=== PATIENT | male | born 1985 | race Caucasian/White ===

== ENCOUNTER 2016-11-10 20:47 | Emergency (ER) | payer BC, OTHER ==
--- NOTE | 2016-11-10 21:59 | RADIOLOGY REPORT (SQ) ---
EXAM DESCRIPTION: RIBS LEFT W/PA CHEST COMPLETED DATE/TIME: 11/10/2016 9:41 pm REASON FOR STUDY: left rib pain COMPARISON: None. TECHNIQUE: Frontal view of the chest and additional views of the left ribs acquired. NUMBER OF VIEWS: Three views LIMITATIONS: None. FINDINGS: FRONTAL CXR: No pneumothorax. No pleural effusion. No atelectasis or infiltrates. RIBS: No displaced rib fractures. No lytic or blastic bony lesions. OTHER: No other significant finding. IMPRESSION: NO PNEUMOTHORAX. NO DISPLACED RIB FRACTURES. COMMENT: SITE OF TRAUMA/COMPLAINT MARKED/STAMP COMPLETED: No TECHNICAL DOCUMENTATION: JOB ID: [id number] [employer]- All Rights Reserved
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
[2016-11-10] MEDS ORDERED: HYDROMORPHONE HCL INJ/PF 2 MG/ML AMPULE IV ONE (22:17)
[2016-11-10] MEDS ORDERED: ONDANSETRON HCL INJ/PF 4 MG/2 ML SDV IV ONE (22:17)
[2016-11-11] MEDS ORDERED: HYDROMORPHONE HCL INJ/PF 2 MG/ML AMPULE IV ONE (00:26)
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
[2016-11-11 00:59] LABS: ABSOLUTE BASOPHILS # (AUTO) 0.1 10^3/uL (0.0-0.2); ABSOLUTE EOSINOPHILS # (AUTO) 0.7 10^3/uL (0.0-0.6); ABSOLUTE LYMPHOCYTES (AUTO) 3.2 10^3/uL (0.5-4.7); ABSOLUTE MONOCYTES (AUTO) 0.7 10^3/uL (0.1-1.4); ABSOLUTE NEUT (AUTO) 5.3 10^3/uL (1.7-8.2); BASOPHILS % (AUTO) 0.8 % (0-2); EOSINOPHILS % (AUTO) 7.2 % (0-6); HEMATOCRIT 43.4 % (37.9-51.0); HEMOGLOBIN 14.8 g/dL (13.5-17.0); LYMPHOCYTES % (AUTO) 32.2 % (13-45); MEAN CORPUSCULAR HEMOGLOBIN 30.7 pg (27.0-33.4); MEAN CORPUSCULAR HGB CONC 34.1 g/dL (32.0-36.0); MEAN CORPUSCULAR VOLUME 90 fl (80-97); MONOCYTES % (AUTO) 7.2 % (3-13); RED BLOOD COUNT 4.83 10^6/uL (4.35-5.55); RED CELL DISTRIBUTION WIDTH 13.9 % (11.5-14.0); SEGMENTED NEUTROPHILS % (AUTO) 52.6 % (42-78)
[2016-11-11 01:05] LABS: ALANINE AMINOTRANSFERASE 81 U/L (21-72); ALBUMIN 4.4 g/dL (3.5-5.0); ALKALINE PHOSPHATASE 89 U/L (38-126); ANION GAP 12 (5-19); ASPARTATE AMINO TRANSFERASE 66 U/L (17-59); BILIRUBIN,DIRECT 0.4 mg/dL (0.0-0.4); BILIRUBIN,TOTAL 0.5 mg/dL (0.2-1.3); BLOOD UREA NITROGEN 10 mg/dL (7-20); CALCIUM 9.2 mg/dL (8.4-10.2); CARBON DIOXIDE 27 mmol/L (22-30); CHLORIDE 106 mmol/L (98-107); CREATININE RESULT 0.75 mg/dL (0.52-1.25); GLUCOSE 94 mg/dL (75-110); LIPASE 70.5 U/L (23-300); POTASSIUM 3.8 mmol/L (3.6-5.0); SODIUM 145.3 mmol/L (137-145); TOTAL PROTEIN 7.7 g/dL (6.3-8.2)
[2016-11-11 01:18] VITALS: BP 142/93
== END 2016-11-11 01:20 | disposition home or self-care (01) ==
LOC: ER 20:47
DX: S20.212A Contusion of left front wall of thorax, initial encounter (principal); W50.0XXA Accidental hit or strike by another person, initial encounter; Y93.75 Activity, martial arts; Y92.009 Unspecified place in unspecified non-institutional (private) residence as the place of occurrence of the external cause; R07.81 Pleurodynia; Z88.6 Allergy status to analgesic agent; Z91.040 Latex allergy status; F17.200 Nicotine dependence, unspecified, uncomplicated
CPT/HCPCS: 96376; 99284; 96374; 96375; 86900; 86901; 36415; 86850; 83690; 85025; 80053; 71101; 74177; J1170 ×2; J2405

== ENCOUNTER 2016-11-14 21:10 | Emergency (ER) | payer OTHER ==
[2016-11-14 22:24] VITALS: BP 118/92
[2016-11-14] MEDS ORDERED: OXYCODONE HCL IR 5 MG TABLET PO ONE (22:33)
[2016-11-14] MEDS ORDERED: ONDANSETRON 4 MG TAB.RAPDIS PO ONE (22:33)
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
--- NOTE | 2016-11-14 23:41 | RADIOLOGY REPORT (SQ) ---
EXAM DESCRIPTION: RIBS LEFT W/PA CHEST COMPLETED DATE/TIME: 11/14/2016 11:27 pm REASON FOR STUDY: fall COMPARISON: 11/10/2016 TECHNIQUE: Frontal view of the chest and additional views of the LEFT ribs acquired. NUMBER OF VIEWS: Four view. LIMITATIONS: None. FINDINGS: FRONTAL CXR: No pneumothorax. No pleural effusion. No atelectasis or infiltrates. RIBS: No displaced rib fractures. No lytic or blastic bony lesions. OTHER: No other significant finding. IMPRESSION: NO PNEUMOTHORAX. NO EVIDENCE OF SUBACUTE OR DISPLACED RIB FRACTURES. COMMENT: SITE OF TRAUMA/COMPLAINT MARKED/STAMP COMPLETED: No TECHNICAL DOCUMENTATION: JOB ID: [id number] [employer]- All Rights Reserved
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
== END 2016-11-14 23:55 | disposition home or self-care (01) ==
LOC: ER 21:10
DX: S20.212A Contusion of left front wall of thorax, initial encounter (principal); R07.81 Pleurodynia; L03.119 Cellulitis of unspecified part of limb; W51.XXXA Accidental striking against or bumped into by another person, initial encounter
CPT/HCPCS: 99283; 71101; S0119

== ENCOUNTER 2016-11-23 22:37 | Emergency (ER) | payer OTHER | END 2016-11-23 23:15 | disposition left against medical advice (07) | LOC: ER 22:37 | DX: Z53.9 Procedure and treatment not carried out, unspecified reason (principal) ==

== ENCOUNTER 2017-01-09 17:07 | Emergency (ER) | payer OTHER ==
[2017-01-09] MEDS ORDERED: MORPHINE SULFATE 10 MG/ML INJ IM ONE (17:35)
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
[2017-01-09] MEDS ORDERED: IBUPROFEN 600 MG TABLET PO ONE (18:25)
[2017-01-09] MEDS ORDERED: LIDOCAINE 5% (700 MG) TRANSDERMAL ADH..PATCH TP ONE (18:25)
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
[2017-01-09] MEDS ORDERED: MORPHINE SULFATE IR 15 MG TABLET PO ONE (18:32)
[2017-01-09] MEDS ORDERED: FAMOTIDINE 20 MG TABLET PO ONE (18:33)
[2017-01-09 19:38] VITALS: BP 124/88
--- NOTE | 2017-01-10 12:58 | EKG REPORT ---
SEVERITY:- OTHERWISE NORMAL ECG - SINUS TACHYCARDIA : Confirmed by: Damion Briggs 10-Jan-2017 12:57:28
== END 2017-01-09 19:50 | disposition home or self-care (01) ==
LOC: ER 17:07
DX: R07.81 Pleurodynia (principal); R00.0 Tachycardia, unspecified; M54.9 Dorsalgia, unspecified; Y04.0XXA Assault by unarmed brawl or fight, initial encounter; F17.200 Nicotine dependence, unspecified, uncomplicated
CPT/HCPCS: 93005; 99283; 96372; 71101; 93010; J2270

== ENCOUNTER 2017-01-12 19:47 | Emergency (ER) | payer OTHER ==
--- NOTE | 2017-01-12 21:11 | RADIOLOGY REPORT (SQ) ---
EXAM DESCRIPTION: RIBS RIGHT W/PA CHEST COMPLETED DATE/TIME: 01/12/2017 9:02 pm REASON FOR STUDY: pain s/p injury Wednesday COMPARISON: None. TECHNIQUE: Frontal view of the chest and additional views of the right ribs acquired. NUMBER OF VIEWS: 3 LIMITATIONS: None. FINDINGS: FRONTAL CXR: No pneumothorax. No pleural effusion. No atelectasis or infiltrates. RIBS: No displaced rib fractures. No lytic or blastic bony lesions. OTHER: No other significant finding. IMPRESSION: NO PNEUMOTHORAX. NO DISPLACED RIB FRACTURES. COMMENT: SITE OF TRAUMA/COMPLAINT MARKED/STAMP COMPLETED: Yes TECHNICAL DOCUMENTATION: JOB ID: [id number] [email or web address]- All Rights Reserved
[2017-01-12] MEDS ORDERED: MORPHINE SULFATE IR 15 MG TABLET PO ONE (21:25)
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
[2017-01-12 21:58] VITALS: BP 131/94
== END 2017-01-12 22:00 | disposition home or self-care (01) ==
LOC: ER 19:47
DX: R07.81 Pleurodynia (principal); Z91.040 Latex allergy status; Z88.6 Allergy status to analgesic agent
CPT/HCPCS: 99283

== ENCOUNTER 2017-01-17 22:31 | Emergency (ER) | payer OTHER ==
--- NOTE | 2017-01-17 23:01 | RADIOLOGY REPORT (SQ) ---
EXAM DESCRIPTION: CHEST PA/LAT COMPLETED DATE/TIME: 01/17/2017 10:53 pm REASON FOR STUDY: RIP PAIN COMPARISON: 2015. NUMBER OF VIEWS: Two view. TECHNIQUE: Frontal and lateral radiographic views of the chest acquired. LIMITATIONS: None. FINDINGS: LUNGS AND PLEURA: Low lung volumes. No opacities, masses or pneumothorax. No pleural eff usion. MEDIASTINUM AND HILAR STRUCTURES: No masses. No contour abnormalities. HEART AND VASCULAR STRUCTURES: Heart normal in size and contour. No evidence for failure. BONES: No acute findings. HARDWARE: None in the chest. OTHER: No other significant finding. IMPRESSION: LOW LUNG VOLUMES. NO SIGNIFICANT RADIOGRAPHIC FINDING IN THE CHEST. TECHNICAL DOCUMENTATION: JOB ID: [id number] [email or web address]- All Rights Reserved
[2017-01-17 23:57] LABS: ABSOLUTE BASOPHILS # (AUTO) 0.1 10^3/uL (0.0-0.2); ABSOLUTE EOSINOPHILS # (AUTO) 0.4 10^3/uL (0.0-0.6); ABSOLUTE NEUT (AUTO) 8.2 10^3/uL (1.7-8.2); BASOPHILS % (AUTO) 1.1 % (0-2); HEMATOCRIT 43.2 % (37.9-51.0); HEMOGLOBIN 15.1 g/dL (13.5-17.0); HGB HCT DIFFERENCE 2.1; LYMPHOCYTES % (AUTO) 23.8 % (13-45); MEAN CORPUSCULAR HEMOGLOBIN 30.4 pg (27.0-33.4); MEAN CORPUSCULAR HGB CONC 34.8 g/dL (32.0-36.0); MEAN CORPUSCULAR VOLUME 87 fl (80-97); MONOCYTES % (AUTO) 8.1 % (3-13); RED BLOOD COUNT 4.95 10^6/uL (4.35-5.55); RED CELL DISTRIBUTION WIDTH 13.4 % (11.5-14.0); WHITE BLOOD COUNT 12.8 10^3/uL (4.0-10.5)
[2017-01-18 00:11] LABS: ALANINE AMINOTRANSFERASE 45 U/L (21-72); ALBUMIN 4.4 g/dL (3.5-5.0); ALKALINE PHOSPHATASE 84 U/L (38-126); ANION GAP 15 (5-19); ASPARTATE AMINO TRANSFERASE 28 U/L (17-59); BILIRUBIN,DIRECT 0.5 mg/dL (0.0-0.4); BILIRUBIN,TOTAL 0.8 mg/dL (0.2-1.3); BLOOD UREA NITROGEN 17 mg/dL (7-20); CALCIUM 9.8 mg/dL (8.4-10.2); CARBON DIOXIDE 23 mmol/L (22-30); CHLORIDE 104 mmol/L (98-107); CREATINE KINASE 46 U/L (55-170); GLUCOSE 94 mg/dL (75-110); POTASSIUM 4.5 mmol/L (3.6-5.0); TOTAL PROTEIN 7.9 g/dL (6.3-8.2)
[2017-01-18 00:24] LABS: CREATINE KINASE MB 0.37 ng/mL (<4.55)
[2017-01-18 00:27] LABS: TROPONIN I < 0.012 ng/mL
[2017-01-18] MEDS ORDERED: LIDOCAINE 5% (700 MG) TRANSDERMAL ADH..PATCH TP ONE (00:33)
[2017-01-18] MEDS ORDERED: KETOROLAC TROMETHAMINE INJ/PF 30 MG/1 ML SDV IV ONE (00:33)
[2017-01-18] MEDS ORDERED: MORPHINE SULFATE IR 15 MG TABLET PO ONE (00:33)
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
[2017-01-18 04:11] VITALS: BP 135/90
--- NOTE | 2017-01-18 06:22 | EKG REPORT ---
SEVERITY:- OTHERWISE NORMAL ECG - SINUS TACHYCARDIA : Confirmed by: Linda Milan MD 18-Jan-2017 06:22:04
== END 2017-01-18 01:19 | disposition home or self-care (01) ==
LOC: ER 22:31
DX: R07.81 Pleurodynia (principal); R00.0 Tachycardia, unspecified; Z91.040 Latex allergy status; Z88.6 Allergy status to analgesic agent
CPT/HCPCS: 93005; 99284; 96374; 36415; 82553; 82550; 85025; 80053; 84484; 71020; 93010; J1885

== ENCOUNTER 2018-04-20 05:25 | Emergency (ER) | payer OTHER, MEDICARE ==
[2018-04-20] MEDS ORDERED: NORMAL SALINE 1000 ML 1,000 ML IV ONE (06:03)
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
[2018-04-20] MEDS ORDERED: ONDANSETRON HCL INJ/PF 4 MG/2 ML SDV IV ONE (06:43)
[2018-04-20] MEDS ORDERED: MORPHINE SULFATE 10 MG/ML INJ IV ONE (06:43)
[2018-04-20 07:12] LABS: ABSOLUTE BASOPHILS # (AUTO) 0.1 10^3/uL (0.0-0.2); ABSOLUTE EOSINOPHILS # (AUTO) 0.2 10^3/uL (0.0-0.6); ABSOLUTE LYMPHOCYTES (AUTO) 2.3 10^3/uL (0.5-4.7); ABSOLUTE MONOCYTES (AUTO) 0.6 10^3/uL (0.1-1.4); ABSOLUTE NEUT (AUTO) 4.7 10^3/uL (1.7-8.2); BASOPHILS % (AUTO) 1.5 % (0-2); EOSINOPHILS % (AUTO) 2.3 % (0-6); HEMATOCRIT 46.3 % (37.9-51.0); HEMOGLOBIN 16.1 g/dL (13.5-17.0); LYMPHOCYTES % (AUTO) 28.8 % (13-45); MEAN CORPUSCULAR HGB CONC 34.7 g/dL (32.0-36.0); MEAN CORPUSCULAR VOLUME 89 fl (80-97); MONOCYTES % (AUTO) 7.7 % (3-13); PLATELET COUNT 313 10^3/uL (150-450); RED BLOOD COUNT 5.18 10^6/uL (4.35-5.55); RED CELL DISTRIBUTION WIDTH 13.9 % (11.5-14.0); SEGMENTED NEUTROPHILS % (AUTO) 59.7 % (42-78); TOTAL CELLS COUNTED % (AUTO) 100 %; WHITE BLOOD COUNT 7.9 10^3/uL (4.0-10.5)
[2018-04-20 07:29] LABS: ALANINE AMINOTRANSFERASE 75 U/L (21-72); ALBUMIN 4.5 g/dL (3.5-5.0); ALKALINE PHOSPHATASE 83 U/L (38-126); ANION GAP 11 (5-19); ASPARTATE AMINO TRANSFERASE 64 U/L (17-59); BILIRUBIN,DIRECT 0.3 mg/dL (0.0-0.4); BILIRUBIN,TOTAL 0.4 mg/dL (0.2-1.3); BLOOD UREA NITROGEN 14 mg/dL (7-20); CALCIUM 9.2 mg/dL (8.4-10.2); CARBON DIOXIDE 24 mmol/L (22-30); CHLORIDE 106 mmol/L (98-107); GLUCOSE 104 mg/dL (75-110); LIPASE 78.4 U/L (23-300); POTASSIUM 4.3 mmol/L (3.6-5.0); SODIUM 141.3 mmol/L (137-145); TOTAL PROTEIN 7.7 g/dL (6.3-8.2)
[2018-04-20 07:55] LABS: PROTHROMBIN TIME 12.6 SEC (11.4-15.4)
[2018-04-20 07:56] LABS: PARTIAL THROMBOPLASTIN TIME 29.9 SEC (23.5-35.8)
[2018-04-20 08:12] LABS: APPEARANCE,URINE TURBID; BILIRUBIN,URINE NEGATIVE (NEGATIVE); GLUCOSE, URINE NEGATIVE (NEGATIVE); KETONES,URINE TRACE mg/dL (NEGATIVE); LEUKOCYTE ESTERASE,URINE NEGATIVE (NEGATIVE); NITRITE,URINE NEGATIVE (NEGATIVE); PROTEIN,URINE NEGATIVE (NEGATIVE); URINE SPECIFIC GRAVITY 1.024; UROBILINOGEN,URINE NEGATIVE mg/dL (<2.0)
[2018-04-20 08:15] LABS: COLOR,URINE YELLOW
[2018-04-20] MEDS ORDERED: LIDOCAINE 2% VISCOUS SOLN 20 ML UDCUP PO ONE (08:19)
[2018-04-20] MEDS ORDERED: METOCLOPRAMIDE HCL ORAL SOLN 10 MG/10 ML UDCUP PO ONE (08:19)
[2018-04-20] MEDS ORDERED: MAG HYDROX/AL HYDROX/SIMETH SUSP 30 ML UDCUP PO ONE (08:19)
--- NOTE | 2018-04-20 08:25 | RADIOLOGY REPORT (SQ) ---
EXAM DESCRIPTION: CT ABD/PELVIS WITH IV ONLY COMPLETED DATE/TIME: 04/20/2018 8:08 am REASON FOR STUDY: ABDOMINAL PAIN, BLOOD IN STOOL COMPARISON: 11/10/2016 TECHNIQUE: CT scan of the abdomen and pelvis performed using helical scanning technique with dynamic intravenous contrast injection. No oral contrast. Images reviewed with lung, soft tissue, and bone windows. Reconstructed coronal and sagittal MPR images reviewed. Delayed images for evaluation of the urinary system also acquired. All images stored on PACS. All CT scanners at this facility use dose modulation, iterative reconstruction, and/or weight based d osing when appropriate to reduce radiation dose to as low as reasonably achievable (ALARA). [facility]: Dose Right [facility]: CareDose [facility]: Dose Right [facility]: Teradose 4D [facility]: Night Zookeeper CONTRAST TYPE AND DOSE: contrast/concentration: Isovue 350.00 mg/ml; Total Contrast Delivered: 100.0 ml; Total Saline Delivered: 70.0 ml RENAL FUNCTION: None required. The patient is less than 50 years old. RADIATION DOSE: CT Rad equipment meets quality standard of care and radiation dose reduction techniq ues were employed. CTDIvol: 19.1 - 20.6 mGy. DLP: 2366 mGy-cm.. LIMITATIONS: None. FINDINGS: LOWER CHEST: No significant findings. No nodules or infiltrates. LIVER: Normal size. No masses. No dilated ducts. SPLEEN: Normal size. No focal lesions. PANCREAS: No masses. No significant calcifications. No adjacent inflammation or peripancreatic fluid collections. Pancreatic duct not dilated. GALLBLADDER: No identified stones by CT criteria. No inflammatory changes to suggest cholecystitis. ADRENAL GLANDS: No significant masses or asymmetry. RIGHT KIDNEY AND URETER: No solid masses. No significant calcifications. No hydronephrosis or hyd roureter. LEFT KIDNEY AND URETER: No solid masses. No significant calcifications. No hydronephrosis or hydr oureter. AORTA AND VESSELS: No aneurysm. No dissection. Renal arteries, SMA, celiac without stenosis. RETROPERITONEUM: No retroperitoneal adenopathy, hemorrhage or masses. BOWEL AND PERITONEAL CAVITY: No masses or inflammatory changes. No free fluid or peritoneal masses. APPENDIX: Surgically absent. PELVIS: No mass. No free fluid. Normal bladder. ABDOMINAL WALL: No masses. No hernias. BONES: No significant or acute findings. OTHER: No other significant finding. IMPRESSION: No CT findings to explain abdominal pain or rectal bleeding. TECHNICAL DOCUMENTATION: JOB ID: [id number] Quality ID # [id number]: Final reports with documentation of one or more dose reduction techniques (e.g., Au tomated exposure control, adjustment of the mA and/or kV according to patient size, use of iterative reconstruction technique) 2010 [employer]- All Rights Reserved Reading location - IP/workstation name: [email or web address]
[2018-04-20 08:49] VITALS: BP 124/94
== END 2018-04-20 09:07 | disposition home or self-care (01) ==
LOC: ER 05:25
DX: K92.1 Melena (principal); K92.0 Hematemesis; K21.9 Gastro-esophageal reflux disease without esophagitis; R10.12 Left upper quadrant pain; F17.210 Nicotine dependence, cigarettes, uncomplicated; F12.10 Cannabis abuse, uncomplicated; Z79.899 Other long term (current) drug therapy; Z90.49 Acquired absence of other specified parts of digestive tract; Z88.6 Allergy status to analgesic agent; Z91.040 Latex allergy status
CPT/HCPCS: 99284; 96361; 96374; 96375; 36415; 83690; 85025; 85610; 85730; 80053; 81001; 74177; J3490; J2270; J2405; J7030

== ENCOUNTER 2018-05-07 13:36 | Emergency (ER) | payer OTHER, MEDICARE ==
[2018-05-07] MEDS ORDERED: OXYCODONE HCL IR 5 MG TABLET PO ONE (14:17)
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
--- NOTE | 2018-05-07 14:55 | RADIOLOGY REPORT (SQ) ---
EXAM DESCRIPTION: ANKLE RIGHT COMPLETE COMPLETED DATE/TIME: 05/07/2018 2:42 pm REASON FOR STUDY: felt pop, r ankle pain after lifting COMPARISON: None. NUMBER OF VIEWS: Three views. TECHNIQUE: AP, lateral, and oblique radiographic images acquired of the right ankle. LIMITATIONS: None. FINDINGS: MINERALIZATION: Normal. BONES: No acute fracture or dislocation. No worrisome bone lesions. JOINTS: Tibiotalar joint effusion. SOFT TISSUES: Medial and lateral soft tissue swelling. No foreign body. OTHER: No other significant finding. IMPRESSION: Ankle joint effusion with diffuse soft tissue swelling. No acute fracture or malalignme nt TECHNICAL DOCUMENTATION: JOB ID: [id number] [employer]- All Rights Reserved Reading location - IP/workstation name: [email or web address]
[2018-05-07 15:22] VITALS: BP 138/99
== END 2018-05-07 15:22 | disposition home or self-care (01) ==
LOC: ER 13:36
DX: S93.401A Sprain of unspecified ligament of right ankle, initial encounter (principal); X50.0XXA Overexertion from strenuous movement or load, initial encounter; Y93.41 Activity, dancing; F17.200 Nicotine dependence, unspecified, uncomplicated
CPT/HCPCS: 99283; 73610; L1902

== ENCOUNTER 2018-05-18 17:37 | Emergency (ER) | payer OTHER, MEDICARE ==
[2018-05-18 17:49] VITALS: BP 112/85
== END 2018-05-18 20:35 | disposition left against medical advice (07) ==
LOC: ER 17:37
DX: Z53.21 Procedure and treatment not carried out due to patient leaving prior to being seen by health care provider (principal); R42 Dizziness and giddiness

== ENCOUNTER 2018-06-21 16:51 | Emergency (ER) | payer OTHER, MEDICARE ==
[2018-06-21 16:55] VITALS: BP 134/94
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
[2018-06-21] MEDS ORDERED: KETOROLAC TROMETHAMINE 60 MG/2 ML SDV IM ONE (17:31)
== END 2018-06-21 18:27 | disposition home or self-care (01) ==
LOC: ER 16:51
DX: S60.221A Contusion of right hand, initial encounter (principal); W22.09XA Striking against other stationary object, initial encounter; F17.200 Nicotine dependence, unspecified, uncomplicated
CPT/HCPCS: 29125; 99283; 96372; 73130; J1885

== ENCOUNTER 2019-07-08 23:20 | Emergency (ER) | payer OTHER, MEDICARE ==
[2019-07-08 23:28] VITALS: BP 146/101
[2019-07-08] MEDS ORDERED: LIDOCAINE 1% INJ-PF (10 MG/ML) 30 ML SDV INJ ONE (23:50)
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
== END 2019-07-09 00:50 | disposition home or self-care (01) ==
LOC: ER 23:20
DX: S61.210A Laceration without foreign body of right index finger without damage to nail, initial encounter (principal); W45.8XXA Other foreign body or object entering through skin, initial encounter; Y93.89 Activity, other specified; Y92.009 Unspecified place in unspecified non-institutional (private) residence as the place of occurrence of the external cause; F17.200 Nicotine dependence, unspecified, uncomplicated
CPT/HCPCS: 99282

== ENCOUNTER 2020-01-03 16:03 | Inpatient (IN) | payer OTHER, MEDICARE ==
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
[2020-01-03] MEDS ORDERED: ONDANSETRON 4 MG TAB.RAPDIS PO ONE (17:24)
[2020-01-03] MEDS ORDERED: KETOROLAC TROMETHAMINE INJ/PF 30 MG/1 ML SDV IM ONE (17:25)
[2020-01-03 18:05] LABS: APPEARANCE,URINE SLIGHTLY-CLOUDY; BILIRUBIN,URINE NEGATIVE (NEGATIVE); COLOR,URINE AMBER; GLUCOSE, URINE NEGATIVE (NEGATIVE); KETONES,URINE TRACE mg/dL (NEGATIVE); LEUKOCYTE ESTERASE,URINE NEGATIVE (NEGATIVE); NITRITE,URINE NEGATIVE (NEGATIVE); PROTEIN,URINE 100 mg/dL (NEGATIVE)
--- NOTE | 2020-01-03 18:39 | RADIOLOGY REPORT (SQ) ---
EXAM DESCRIPTION: U/S SCROTUM W/DOPPLER IMAGES COMPLETED DATE/TIME: 01/03/2020 6:30 pm REASON FOR STUDY: testicular pain, bilateral COMPARISON: 2012 TECHNIQUE: Static and realtime webber scale imaging of the scrotum and testes. Selected color Doppler and spectral images recorded to document blood flow. LIMITATIONS: None. FINDINGS: RIGHT: TESTICLE: Normal size, 4.3 cm. Normal echotexture. Normal blood flow. No mass. EPIDIDYMIS: Normal. HYDROCELE OR VARICOCELE: No. HERNIA OR EXTRA-TESTICULAR MASS: No. OTHER: No other significant finding. LEFT: TESTICLE: Normal size, 4.1 cm. Normal echotexture. Normal blood flow. No mass. EPIDIDYMIS: Normal except for the presence of a 10 mm epididymal cyst. HYDROCELE OR VARICOCELE: No. HERNIA OR EXTRA-TESTICULAR MASS: No. OTHER: No other significant finding. IMPRESSION: Left epididymal cyst. The testes are normal. No acute inflammatory changes are seen. TECHNICAL DOCUMENTATION: JOB ID: [id number] 2010 [employer] All Rights Reserved Reading location - IP/workstation name: [email or web address]
[2020-01-03] MEDS ORDERED: NORMAL SALINE 1000 ML 1,000 ML IV ONE ×2 (18:58→20:32)
[2020-01-03 19:19] LABS: ABSOLUTE BASOPHILS # (AUTO) 0.1 10^3/uL (0.0-0.2); ABSOLUTE EOSINOPHILS # (AUTO) 0.2 10^3/uL (0.0-0.6); ABSOLUTE LYMPHOCYTES (AUTO) 1.6 10^3/uL (0.5-4.7); ABSOLUTE NEUT (AUTO) 10.5 10^3/uL (1.7-8.2); BASOPHILS % (AUTO) 0.5 % (0-2); EOSINOPHILS % (AUTO) 1.2 % (0-6); HEMATOCRIT 41.5 % (37.9-51.0); HEMOGLOBIN 14.3 g/dL (13.5-17.0); LYMPHOCYTES % (AUTO) 12.2 % (13-45); MEAN CORPUSCULAR HEMOGLOBIN 32.8 pg (27.0-33.4); MEAN CORPUSCULAR HGB CONC 34.4 g/dL (32.0-36.0); MEAN CORPUSCULAR VOLUME 96 fl (80-97); MONOCYTES % (AUTO) 7.6 % (3-13); RED BLOOD COUNT 4.34 10^6/uL (4.35-5.55); RED CELL DISTRIBUTION WIDTH 16.6 % (11.5-14.0); SEGMENTED NEUTROPHILS % (AUTO) 78.5 % (42-78); TOTAL CELLS COUNTED % (AUTO) 100 %; WHITE BLOOD COUNT 13.4 10^3/uL (4.0-10.5)
[2020-01-03] MEDS ORDERED: MORPHINE SULFATE 10 MG/ML INJ IV ONE ×2 (19:21→23:12)
[2020-01-03] MEDS ORDERED: ONDANSETRON HCL INJ/PF 4 MG/2 ML SDV IV ONE (19:21)
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
[2020-01-03 19:30] LABS: ALBUMIN 4.6 g/dL (3.5-5.0); ALKALINE PHOSPHATASE 106 U/L (38-126); ANION GAP 16 (5-19); ASPARTATE AMINO TRANSFERASE 72 U/L (17-59); BILIRUBIN,DIRECT 0.5 mg/dL (0.0-0.4); BILIRUBIN,TOTAL 1.5 mg/dL (0.2-1.3); BLOOD UREA NITROGEN 8 mg/dL (7-20); CALCIUM 8.3 mg/dL (8.4-10.2); CARBON DIOXIDE 22 mmol/L (22-30); CHLORIDE 99 mmol/L (98-107); GLUCOSE 114 mg/dL (75-110); POTASSIUM 3.3 mmol/L (3.6-5.0); TOTAL PROTEIN 7.9 g/dL (6.3-8.2)
[2020-01-03 19:37] LABS: PLATELET COUNT 155 10^3/uL (150-450)
--- NOTE | 2020-01-03 21:48 | RADIOLOGY REPORT (SQ) ---
CT ABDOMEN PELVIS WITH IV CONTRAST HISTORY: Abdominal pain. Pancreatitis. COMPARISON: 11/12/2019 TECHNIQUE: CT scan of the abdomen and pelvis was performed with IV contrast. This exam was performed according to our departmental dose-optimization program, which includes automated exposure control, adjustment of the mA and/or kV according to patient size and/or use of iterative reconstruction technique. FINDINGS: The lung bases are clear. No pleural or pericardial effusions. There is no hiatal hernia. There is diffuse hepatic steatosis. The spleen, gallbladder, adrenal glands, kidneys, and pelvic organs are unremarkable. No obstructing urinary stones are seen. There has been interval decrease in the inflammatory stranding surrounding the pancreas. No evidence of pancreatic necrosis or pseudocyst. There has been a prior appendectomy. The remainder of the small and large bowel, including the stomach are normal without evidence of obstruction or inflammation. No free fluid or free air is seen in the peritoneal cavity. The aorta is normal in caliber. No acute bony findings are seen. No abnormal body wall hernia. IMPRESSION: 1. Interval decrease in peripancreatic inflammatory stranding. 2. No pancreatic pseudocyst or necrosis.
[2020-01-04] MEDS ORDERED: HYDRALAZINE HCL INJ/PF 20 MG/1 ML SDV IV ONE (01:10)
[2020-01-04] MEDS ORDERED: ONDANSETRON HCL INJ/PF 4 MG/2 ML SDV IV PRN ×2 (02:14→07:30)
[2020-01-04] MEDS ORDERED: NORMAL SALINE 1000 ML 1,000 ML IV PRN (02:14)
[2020-01-04] MEDS ORDERED: PROMETHAZINE HCL INJ 25 MG/1 ML VIAL IV PRN ×2 (02:14→07:30)
[2020-01-04] MEDS ORDERED: TEMAZEPAM 7.5 MG CAPSULE PO PRN (02:14)
[2020-01-04] MEDS ORDERED: IPRATROPIUM/ALBUTEROL 0.5-2.5 MG/3 ML AMPUL NEB PRN (02:14)
[2020-01-04] MEDS ORDERED: NORMAL SALINE 1000 ML 1,000 ML with POTASSIUM CHLORIDE 20 MEQ, MAGNESIUM SULFATE 8 MEQ,... IV ONE ×10 (02:23→08:00)
[2020-01-04] MEDS ORDERED: METOPROLOL TARTRATE PF/INJ 5 MG/5 ML SDV IV PRN (02:57)
[2020-01-04] MEDS ORDERED: HYDRALAZINE HCL INJ/PF 20 MG/1 ML SDV IV PRN (02:57)
[2020-01-04] MEDS: MORPHINE SULFATE 10 MG/ML INJ IV PRN ×3 (03:14→15:14)
[2020-01-04] MEDS: LORAZEPAM INJ 2 MG/1 ML VIAL IV PRN ×2 (03:14→07:58)
--- NOTE | 2020-01-04 03:14 | PDOC H&P ---
History of Present Illness Admission Date/PCP: 01/03/20 23:[facility] History of Present Illness: ROBBY PATEL is a 34 year old male past medical history of depression, tobacco abuse, heavy alcohol abuse which he has been working to quit, stating that he used to drink heavily in the past but currently he is drinking about 3 beers per day and he is planning to cut it down completely, patient had pancreatitis before for which she was hospitalized at [facility] and subsequently left AMA as he was not allowed p.o. intake. Patient presented to ED complaining of bilateral testicular pain x3 days and acute abdominal pain x1 day. Patient is stating that during sexual activity with his he received bilateral testicular trauma after which was having severe bilateral testicular pain, patient did not seek any immediate medical attention before to go away. 2 days ago ago patient had 3 beers and the following morning patient started having severe left upper quadrant, stabbing, radiating to his back, abdominal pain associated with nausea and vomiting, patient did not seek any immediate medical attention hoping for his pain to go away however today he admitted to presented to ED as his pain was not improving. Patient is stating that initially after having abdominal pain he was not able to take any p.o. intake, as he was very nauseous and having severe abdominal pain, he has a started to take p.o. fluids and some food without any nausea or vomiting, and having bowel movements however her abdominal pain is not improved. In ED bilateral testicular ultrasound did not show any acute abnormalities, CT abdomen pelvis showed interval decrease in peripancreatic inflammatory str anding, no pancreatic pseudocyst or necrosis, however patient was very elevated lipase at two 2252.9 and elevated T bili. Patient denies any shortness of breath, nausea, vomiting, fever, chills, chest pain, diarrhea, constipation. Past Medical History Cardiac Medical History: Reports: Hypertension Neurological Medical History: Reports: Seizures Malignancy Medical History: Reports: Renal (Kidney) Cancer - Told by OR but never followed up Psychiatric Medical History: Reports: Attention Deficit Hyperactivity Disorder, Bipolar Disorder, Depression, Personality Disorder Hematology: Reports: Sickle Cell Disease Past Surgical History Past Surgical History: Reports: Appendectomy, Orthopedic Surgery - back x2, Tonsillectomy Social History Smoking Status: Current Every Day Smoker Electronic Cigarette use?: No Frequency of Alcohol Use: Heavy Hx Recreational Drug Use: Yes Drugs: Marijuana Hx Prescription Drug Abuse: No Family History Family History: CAD, DM, Malignancy Parental Family History Reviewed: Yes Children Family History Reviewed: Yes Sibling(s) Family History Reviewed.: Yes Medication/Allergy Home Medications: Aripiprazole [Abilify 5 mg Tablet] 10 mg PO DAILY 11/12/19 Omeprazole Magnesium [Prilosec Otc] 20 mg PO DAILY 11/12/19 Allergies/Adverse Reactions: gabapentin [Gabapentin] Allergy (Intermediate, Verified 01/03/20 16:57) latex [Latex] Allergy (Intermediate, Verified 01/03/20 16:57) Hives acetaminophen [From Tylenol] Adverse Reaction (Severe, Verified 01/03/20 16:57) Anaphylaxis tramadol HCl [From Ultram] Adverse Reaction (Intermediate, Verified 01/03/20 16:57) tremors valproic acid [Valproic Acid] Adverse Reaction (Verified 01/03/20 16:57) unknown Review of Systems Review of Systems: as per hpi Physical Exam Vital Signs: Temp Pulse Resp BP Pulse Ox 98.3 F 105 H 20 144/109 H 98 01/03/20 23:18 01/03/20 23:18 01/03/20 23:18 01/03/20 23:18 01/03/20 23:18 Intake & Output 01/02/20 01/03/20 01/04/20 06:59 06:59 06:59 Intake Total 1000 Balance 1000 Weight 100.8 kg General appearance: PRESENT: no acute distress, well-developed, well-nourished Head exam: PRESENT: atraumatic, normocephalic Neck exam: ABSENT: carotid bruit, JVD, lymphadenopathy, thyromegaly Respiratory exam: PRESENT: clear to auscultation maría elena. ABSENT: rales, rhonchi, wheezes Cardiovascular exam: PRESENT: RRR, tachycardia. ABSENT: diastolic murmur, rubs, systolic murmur GI/Abdominal exam: PRESENT: firm, guarding, normal bowel sounds, tenderness - Left upper quadrant. ABSENT: distended, mass, organolmegaly, rebound Neurological exam: PRESENT: alert, awake, oriented to person, oriented to place, oriented to time, oriented to situation, CN II-XII grossly intact. ABSENT: motor sensory deficit Results Laboratory Results: 01/03/20 18:59 01/03/20 18:59 01/03/20 01/03/20 01/03/20 17:25 17:45 17:45 WBC Cancelled RBC Cancelled Hgb Cancelled Hct Cancelled MCV Cancelled MCH Cancelled MCHC Cancelled RDW Cancelled Plt Count Cancelled Seg Neutrophils % Cancelled Sodium Cancelled Potassium Cancelled Chloride Cancelled Carbon Dioxide Cancelled Anion Gap Cancelled BUN Cancelled Creatinine Cancelled Est GFR ( Amer) Cancelled Est GFR (Non-Af Amer) Cancelled Glucose Cancelled Calcium Cancelled Total Bilirubin Cancelled AST Cancelled Alkaline Phosphatase Cancelled Total Protein Cancelled Albumin Cancelled Lipase Cancelled Urine Color JACOB Urine Appearance SLIGHTLY-CLOUDY Urine pH 5.0 Ur Specific [place] 1.030 Urine Protein 100 H Urine Glucose (UA) NEGATIVE Urine Ketones TRACE H Urine Blood NEGATIVE Urine Nitrite NEGATIVE Ur Leukocyte Esterase NEGATIVE Urine WBC (Auto) 3 Urine RBC (Auto) 3 01/03/20 01/03/20 18:59 18:59 WBC 13.4 H RBC 4.34 L Hgb 14.3 Hct 41.5 MCV 96 MCH 32.8 MCHC 34.4 RDW 16.6 H Plt Count 155 Seg Neutrophils % 78.5 H Sodium 136.6 L Potassium 3.3 L Chloride 99 Carbon Dioxide 22 Anion Gap 16 BUN 8 Creatinine 0.67 Est GFR ( Amer) > 60 Est GFR (Non-Af Amer) Glucose 114 H Calcium 8.3 L Total Bilirubin 1.5 H AST 72 H Alkaline Phosphatase 106 Total Protein 7.9 Albumin 4.6 Lipase 2252.9 H Urine Color Urine Appearance Urine pH Ur Specific [place] Urine Protein Urine Glucose (UA) Urine Ketones Urine Blood Urine Nitrite Ur Leukocyte Esterase Urine WBC (Auto) Urine RBC (Auto) Impressions: Scrotum Ultrasound 01/03/20 17:14 IMPRESSION: Left epididymal cyst. The testes are normal. No acute inflammatory changes are seen. Abdomen/Pelvis CT 01/03/20 20:03 IMPRESSION: 1. Interval decrease in peripancreatic inflammatory stranding. 2. No pancreatic pseudocyst or necrosis. Assessment and Plan - Diagnosis (1) Acute alcoholic pancreatitis Qualifiers: Acute pancreatitis complication: no infection or necrosis Qualified Code(s): K85.20 - Alcohol induced acute pancreatitis without necrosis or infection Is this a current diagnosis for this admission?: Yes Plan: History of recurrent alcohol pancreatitis. History of heavy drinking. Currently has been trying to cut it down. Drinks about [address] abdomen pelvis negative for any peripancreatic fluid collection or necrosis. Denies any fever no leukocytosis, no sign of infection. Admit to floor, aggressive volume decision global status, monitor electrolytes and replace as needed, advance diet as tolerated. (2) Alcohol abuse Is this a current diagnosis for this admission?: Yes Plan: History of heavy alcohol abuse, denies any history of alcohol withdrawal or DT. Last alcohol intake 2 days ago, 3 beers. Denies any anxiety, auditory or visual hallucination. No sign of acute withdrawal. Admit to floor, folic acid, thiamine, multivitamins, PRN benzos, monitor vitals, DT precautions. Encouraged on abstinence. (3) Obesity (BMI 30-39.9) Is this a current diagnosis for this admission?: Yes Plan: BMI 33.8. Will obtain TSH, hemoglobin A1c and lipid panel. Diet and lifestyle modification recommended. (4) PTSD (post-traumatic stress disorder) Is this a current diagnosis for this admission?: Yes Plan: Resume home meds. Outpatient PCP and psychiatry follow-up. (5) Tobacco abuse Is this a current diagnosis for this admission?: Yes Plan: Counseled on quitting. Nicotine patch will be provided. - Time Time Spent with patient: 35 or more minutes Smoking Cessation Education: 3 to 10 minutes Medications reviewed and adjusted accordingly: Yes Anticipated Discharge Disposition: Home, Self Care Anticipated Discharge Timeframe: within 48 hours
[2020-01-04] MEDS ORDERED: HEPARIN SOD (PORCINE) 5,000 UNIT/ML 1 ML VIAL SUBCUT SCH (06:00)
[2020-01-04] MEDS ORDERED: LORAZEPAM INJ 2 MG/1 ML VIAL IV PRN (08:02)
[2020-01-04] MEDS ORDERED: RINGERS SOLUTION,LACTATED 1,000 ML IV ONE (08:04)
[2020-01-04] MEDS: MULTIVITAMIN TABLET PO SCH (09:59)
[2020-01-04] MEDS: RINGERS SOLUTION,LACTATED 1,000 ML IV PRN ×2 (09:59→15:21)
[2020-01-04] MEDS: FAMOTIDINE INJ/PF 20 MG/2 ML SDV IV SCH ×2 (09:59→23:00)
[2020-01-04 11:44] LABS: ABSOLUTE EOSINOPHILS # (AUTO) 0.2 10^3/uL (0.0-0.6); ABSOLUTE LYMPHOCYTES (AUTO) 1.8 10^3/uL (0.5-4.7); ABSOLUTE MONOCYTES (AUTO) 0.7 10^3/uL (0.1-1.4); ABSOLUTE NEUT (AUTO) 6.6 10^3/uL (1.7-8.2); BASOPHILS % (AUTO) 0.4 % (0-2); EOSINOPHILS % (AUTO) 2.1 % (0-6); HEMATOCRIT 33.5 % (37.9-51.0); LYMPHOCYTES % (AUTO) 19.3 % (13-45); MEAN CORPUSCULAR HEMOGLOBIN 32.8 pg (27.0-33.4); MEAN CORPUSCULAR HGB CONC 34.5 g/dL (32.0-36.0); MEAN CORPUSCULAR VOLUME 95 fl (80-97); MONOCYTES % (AUTO) 7.8 % (3-13); PLATELET COUNT 132 10^3/uL (150-450); RED BLOOD COUNT 3.53 10^6/uL (4.35-5.55); RED CELL DISTRIBUTION WIDTH 16.3 % (11.5-14.0); SEGMENTED NEUTROPHILS % (AUTO) 70.4 % (42-78); TOTAL CELLS COUNTED % (AUTO) 100 %; WHITE BLOOD COUNT 9.4 10^3/uL (4.0-10.5)
[2020-01-04 11:46] LABS: HEMOGLOBIN 11.6 g/dL (13.5-17.0)
[2020-01-04 12:05] LABS: ANION GAP 8 (5-19); BLOOD UREA NITROGEN 6 mg/dL (7-20); CALCIUM 7.2 mg/dL (8.4-10.2); CARBON DIOXIDE 22 mmol/L (22-30); CHLORIDE 103 mmol/L (98-107); GLUCOSE 97 mg/dL (75-110)
[2020-01-04 13:19] LABS: POTASSIUM 3.6 mmol/L (3.6-5.0)
--- NOTE | 2020-01-04 16:43 | PDOC PROGRESS REPORT ---
Subjective Progress Note for:: 01/04/20 Subjective:: Patient is resting in bed. He states that he was finally able to get comfortable enough to sleep. Continues to complain of abdominal and testicular pain. He does feel as though his abdominal pain is improving slowly. Testicular pain continues to be intermittent. He is tolerating liquids. Denies nausea, vomiting, diarrhea. Denies DT or feelings of alcohol withdraw. Further denies fever, chills, CP or SOB. Reason For Visit: ACUTE PANCREATITIS,ABDOMINAL PAIN,NAUSEA,VOMITING Physical Exam Vital Signs: Temp Pulse Resp BP Pulse Ox 98.9 F 133 H 20 128/97 H 97 01/04/20 08:33 01/04/20 08:33 01/04/20 08:33 01/04/20 08:33 01/04/20 08:33 Intake & Output 01/03/20 01/04/20 01/05/20 06:59 06:59 06:59 Intake Total 1000 1000 Balance 1000 1000 Weight 102.4 kg General appearance: PRESENT: no acute distress, cooperative, obese Head exam: PRESENT: atraumatic, normocephalic Eye exam: PRESENT: conjunctiva pink, EOMI, PERRLA. ABSENT: scleral icterus Ear exam: PRESENT: TM's normal bilaterally. ABSENT: bleeding, drainage Mouth exam: PRESENT: moist, tongue midline Neck exam: PRESENT: full ROM. ABSENT: JVD, tenderness, thyromegaly Respiratory exam: PRESENT: clear to auscultation maría elena, symmetrical, unlabored. ABSENT: chest wall tenderness, rales, retraction, stridor, tachypnea Cardiovascular exam: PRESENT: +S1, +S2, tachycardia GI/Abdominal exam: PRESENT: guarding, normal bowel sounds, tenderness - Left upper and lowe rquadrant, other - Striae. ABSENT: ascites, firm Rectal exam: PRESENT: deferred Extremities exam: ABSENT: calf tenderness, clubbing, pedal edema, tenderness Musculoskeletal exam: PRESENT: ambulatory, full ROM. ABSENT: deformity, dislocation Neurological exam: PRESENT: alert, awake, oriented to person, oriented to place, oriented to time, oriented to situation, CN II-XII grossly intact. ABSENT: motor sensory deficit Psychiatric exam: PRESENT: depressed, suicidal ideation, other - Patient becomes teary on exm when discussing stressors Skin exam: PRESENT: dry, intact, warm. ABSENT: jaundice Results Laboratory Results: 01/03/20 18:59 01/03/20 18:59 01/03/20 01/03/20 01/03/20 17:25 17:45 17:45 WBC Cancelled RBC Cancelled Hgb Cancelled Hct Cancelled MCV Cancelled MCH Cancelled MCHC Cancelled RDW Cancelled Plt Count Cancelled Seg Neutrophils % Cancelled Sodium Cancelled Potassium Cancelled Chloride Cancelled Carbon Dioxide Cancelled Anion Gap Cancelled BUN Cancelled Creatinine Cancelled Est GFR ( Amer) Cancelled Est GFR (Non-Af Amer) Cancelled Glucose Cancelled Calcium Cancelled Total Bilirubin Cancelled AST Cancelled Alkaline Phosphatase Cancelled Total Protein Cancelled Albumin Cancelled Lipase Cancelled Urine Color JACOB Urine Appearance SLIGHTLY-CLOUDY Urine pH 5.0 Ur Specific [place] 1.030 Urine Protein 100 H Urine Glucose (UA) NEGATIVE Urine Ketones TRACE H Urine Blood NEGATIVE Urine Nitrite NEGATIVE Ur Leukocyte Esterase NEGATIVE Urine WBC (Auto) 3 Urine RBC (Auto) 3 01/03/20 01/03/20 18:59 18:59 WBC 13.4 H RBC 4.34 L Hgb 14.3 Hct 41.5 MCV 96 MCH 32.8 MCHC 34.4 RDW 16.6 H Plt Count 155 Seg Neutrophils % 78.5 H Sodium 136.6 L Potassium 3.3 L Chloride 99 Carbon Dioxide 22 Anion Gap 16 BUN 8 Creatinine 0.67 Est GFR ( Amer) > 60 Est GFR (Non-Af Amer) Glucose 114 H Calcium 8.3 L Total Bilirubin 1.5 H AST 72 H Alkaline Phosphatase 106 Total Protein 7.9 Albumin 4.6 Lipase 2252.9 H Urine Color Urine Appearance Urine pH Ur Specific [place] Urine Protein Urine Glucose (UA) Urine Ketones Urine Blood Urine Nitrite Ur Leukocyte Esterase Urine WBC (Auto) Urine RBC (Auto) Impressions: Scrotum Ultrasound 01/03/20 17:14 IMPRESSION: Left epididymal cyst. The testes are normal. No acute inflammatory changes are seen. Abdomen/Pelvis CT 01/03/20 20:03 IMPRESSION: 1. Interval decrease in peripancreatic inflammatory stranding. 2. No pancreatic pseudocyst or necrosis. Assessment and Plan - Diagnosis (1) Passive suicidal ideations Is this a current diagnosis for this admission?: Yes (2) Acute alcoholic pancreatitis Qualifiers: Acute pancreatitis complication: no infection or necrosis Qualified Code(s): K85.20 - Alcohol induced acute pancreatitis without necrosis or infection Is this a current diagnosis for this admission?: Yes (3) Alcohol abuse Is this a current diagnosis for this admission?: Yes (4) Obesity (BMI 30-39.9) Is this a current diagnosis for this admission?: Yes (5) PTSD (post-traumatic stress disorder) Is this a current diagnosis for this admission?: Yes (6) Tobacco abuse Is this a current diagnosis for this admission?: Yes - Plan Summary Summary: ROBBY PATEL is a 34 year old male with past medical history of depression, tobacco abuse, heavy alcohol abuse, and pancreatitis presented to the emergency department with concerns of bilateral testicular pain (x3 days) and acute abd ominal pain (x1 day). Testicular pain originated after testicular trauma during sexual activity with his . Pain is described as an intermittent shooting pain that radiates to the abdomen. Testicular US in the ED unremarkable for acute abnormalities. Abdominal pain described as sharp shooting pain in the left upper quadrant that radiates to his back. He experienced associated nausea and vomiting. He was initially unable to tolerate PO secondary to severity of nausea and abdominal pain. He since has been able to tolerate fluids. CT abdomen, pelvis showed interbal decrease in peripancreatic inflammatory stranding, no pancreatic pseudocyst or necrosis. Lipase at time of admission 2252.9 with elevated T bili. He was subsequently admitted to the hospitalist service for further evaluation and treatment. Passive suicidal thoughts Patient became teary on exam and noted several life stresses including history of multiple tours in [place] and schooling his children at home. When asked if patient was interested in seeking psychiatric assistance he agreed. When asked if he had suicidal ideations he denied to me. Discussed case with Dr. Hernandez who saw the patient. When she asked if patient had a plan he stated that he had the "perfect plan" but states that he is not actively suicidal and adamantly denies wanting to kill himself at this time. Pt further reports previous suicide attempt of jumping in front of a car. Denies receiving or seeking treatment following. Psych has been consulted. They are agreeing to see him. Though patient denies active SI I have made nursing staff aware and they are agreeing to monitor patient closely. Acute alcoholic pancreatitis History of heavy alcohol abuse. Currently consuming 3 beers daily with last drink [address] abdomen pelvis negative for any peripancreatic fluid collection or necrosis. Denies any fever no leukocytosis, no sign of infection. Lipase 2252.9, AST:ALT ration 2:1. Continue with aggressive IVFs. Monitor electrolytes and replace as needed. Tolerating clear liquids well, advance diet as tolerated. Alcohol abuse History of heavy alcohol abuse, denies any history of alcohol withdrawal or DT. Last alcohol intake 2 days ago, 3 beers. Denies any anxiety, auditory or visual hallucination. No sign of acute withdrawal. Continue supplementing with folic acid, thiamine, multivitamins CIWA to be complete by nurse q4 hours. -Give Ativan if > 7, contact provider if >11 Obesity (BMI 30-39.9) BMI 33.8. Pending TSH, hemoglobin A1c and lipid panel. Diet and lifestyle modification recommended. PTSD (post-traumatic stress disorder) Resume home meds at this time. Psych was made aware of patient's history and will consult. Tobacco abuse Encouraged quitting. Nicotine patch will be provided. - Time Time Spent with patient: 25-34 minutes Smoking Cessation Education: 3 to 10 minutes Medications reviewed and adjusted accordingly: Yes Anticipated Discharge Disposition: Home, Self Care Anticipated Discharge Timeframe: within 24 hours
[2020-01-04] MEDS: PANTOPRAZOLE SODIUM 40 MG TABLET.DR PO SCH (17:16)
--- NOTE | 2020-01-04 17:31 | PSYCHOLOGICAL NOTE ---
Psych Note - Psych Note Date seen by psych provider: 01/04/20 Psych Note: Reason for Consult: Suicidal comments Medication recommendations per [facility]'s contracted psychiatrist are as follows: Thorazine 100mg (IV) every 6 hours Cogentin 1mg Twice daily Impression/plan: patient is recommended Full IVC. Patient discloses both suicidal and homicidal ideation. He has a history of harming himself and other with bouts of uncontrolled anger and rage. Dr. Kelly was consulted on the care and management of this patient; attending physician is in agreement with recommendations and disposition.
[2020-01-04] MEDS: BENZTROPINE MESYLATE 1 MG TABLET PO SCH (17:33)
[2020-01-04] MEDS ORDERED: NORMAL SALINE 1000 ML 1,000 ML with POTASSIUM CHLORIDE 20 MEQ, MAGNESIUM SULFATE 8 MEQ,... IV SCH ×5 (18:00)
[2020-01-04] MEDS ORDERED: CHLORPROMAZINE HCL INJ 25 MG/1 ML AMPULE IV SCH ×2 (18:00→19:00)
[2020-01-04] MEDS: CHLORPROMAZINE HCL INJ 25 MG/1 ML AMPULE IM SCH (18:18)
[2020-01-04] MEDS ORDERED: LORAZEPAM INJ 2 MG/1 ML VIAL IM ONE ×2 (18:34→18:45)
[2020-01-04] MEDS ORDERED: MAGNESIUM SULFATE 4 GM/100 ML RTUPB IV ONE (19:00)
[2020-01-04] MEDS ORDERED: CALCIUM GLUCONATE 1000 MG/10 ML INJ IV ONE (20:04)
[2020-01-04] MEDS ORDERED: CALCIUM GLUCONATE 1 GM/NS 50 ML RTU IV ONE (22:00)
[2020-01-04] MEDS ORDERED: DIAZEPAM 5 MG TABLET PO ONE (23:45)
[2020-01-05] MEDS ORDERED: OXYCODONE-ACETAMINOPHEN 5-325 MG TABLET ONE (03:56)
[2020-01-05] MEDS ORDERED: OXYCODONE HCL IR 5 MG TABLET ONE (04:07)
[2020-01-05] MEDS: OXYCODONE HCL IR 5 MG TABLET PO PRN ×2 (04:38→22:11)
[2020-01-05] MEDS: CHLORPROMAZINE HCL INJ 25 MG/1 ML AMPULE IM SCH ×3 (05:50→12:16)
[2020-01-05] MEDS: PANTOPRAZOLE SODIUM 40 MG TABLET.DR PO SCH ×2 (05:51→18:47)
[2020-01-05 08:09] LABS: ABSOLUTE EOSINOPHILS # (AUTO) 0.2 10^3/uL (0.0-0.6); ABSOLUTE LYMPHOCYTES (AUTO) 1.3 10^3/uL (0.5-4.7); ABSOLUTE MONOCYTES (AUTO) 0.5 10^3/uL (0.1-1.4); ABSOLUTE NEUT (AUTO) 5.5 10^3/uL (1.7-8.2); BASOPHILS % (AUTO) 0.5 % (0-2); EOSINOPHILS % (AUTO) 2.1 % (0-6); HEMATOCRIT 29.9 % (37.9-51.0); HEMOGLOBIN 10.6 g/dL (13.5-17.0); LYMPHOCYTES % (AUTO) 17.6 % (13-45); MEAN CORPUSCULAR HEMOGLOBIN 33.3 pg (27.0-33.4); MEAN CORPUSCULAR HGB CONC 35.4 g/dL (32.0-36.0); MEAN CORPUSCULAR VOLUME 94 fl (80-97); MONOCYTES % (AUTO) 6.6 % (3-13); PLATELET COUNT 140 10^3/uL (150-450); RED BLOOD COUNT 3.17 10^6/uL (4.35-5.55); RED CELL DISTRIBUTION WIDTH 16.2 % (11.5-14.0); SEGMENTED NEUTROPHILS % (AUTO) 73.2 % (42-78); TOTAL CELLS COUNTED % (AUTO) 100 %; WHITE BLOOD COUNT 7.5 10^3/uL (4.0-10.5)
[2020-01-05 08:14] LABS: INTERNATIONAL RATION (INR) 1.03; PROTHROMBIN TIME 13.7 SEC (11.4-15.4)
[2020-01-05 08:42] LABS: ALBUMIN 3.3 g/dL (3.5-5.0); ALKALINE PHOSPHATASE 68 U/L (38-126); ANION GAP 10 (5-19); ASPARTATE AMINO TRANSFERASE 35 U/L (17-59); BILIRUBIN,DIRECT 0.4 mg/dL (0.0-0.4); BILIRUBIN,TOTAL 0.6 mg/dL (0.2-1.3); BLOOD UREA NITROGEN 3 mg/dL (7-20); CALCIUM 7.5 mg/dL (8.4-10.2); CARBON DIOXIDE 25 mmol/L (22-30); CHLORIDE 104 mmol/L (98-107); CHOLESTEROL 158.49 mg/dL (0-200); GLUCOSE 81 mg/dL (75-110); TRIGLYCERIDES 110 mg/dL (<150)
[2020-01-05 08:48] LABS: POTASSIUM 2.8 mmol/L (3.6-5.0)
[2020-01-05 08:54] LABS: DIRECT LDL 90 mg/dL (<100)
[2020-01-05] MEDS: BENZTROPINE MESYLATE 1 MG TABLET PO SCH (09:55)
[2020-01-05] MEDS: POTASSIUM CHLORIDE 10 MEQ TABLET.ER PO SCH ×3 (09:56→14:16)
[2020-01-05] MEDS: MAGNESIUM OXIDE 400 MG TABLET PO SCH ×3 (09:56→18:47)
[2020-01-05] MEDS: MULTIVITAMIN TABLET PO SCH (09:56)
[2020-01-05] MEDS: FOLIC ACID 1 MG TABLET PO SCH (09:56)
[2020-01-05] MEDS: DIAZEPAM 5 MG TABLET PO SCH ×3 (09:57→18:46)
[2020-01-05] MEDS: FAMOTIDINE INJ/PF 20 MG/2 ML SDV IV SCH ×2 (09:58→22:02)
[2020-01-05] MEDS ORDERED: MULTIVITS (INFANT) W-IRON & FLUORIDE (0.25 MG/ML) DROPS PO SCH (10:00)
[2020-01-05] MEDS: THIAMINE HCL 100 MG TABLET PO SCH (10:02)
--- NOTE | 2020-01-05 10:22 | PDOC DISCHARGE SUMMARY ---
<EWACHRISTEN - Last Filed: 01/05/20 09:57> Impression - Admit/DC Date/PCP Admission Date/Primary Care Provider: 01/03/20 23:[facility] Discharge Date: 01/05/20 - Discharge Diagnosis (1) Depression with suicidal ideation Is this a current diagnosis for this admission?: Yes (2) Homicidal ideations Is this a current diagnosis for this admission?: Yes (3) Acute alcoholic pancreatitis Is this a current diagnosis for this admission?: Yes (4) Alcohol abuse Is this a current diagnosis for this admission?: Yes (5) Hypokalemia Is this a current diagnosis for this admission?: Yes (6) Hypomagnesemia Is this a current diagnosis for this admission?: Yes (7) Obesity (BMI 30-39.9) Is this a current diagnosis for this admission?: Yes (8) PTSD (post-traumatic stress disorder) Is this a current diagnosis for this admission?: Yes (9) Tobacco abuse Is this a current diagnosis for this admission?: Yes - Assessment Summary: Mr. ROBBY PATEL is a 34 year old [place] with past medical history of depression, tobacco abuse, heavy alcohol abuse, and alcoholic pancreatitis who presented to the emergency department with concerns of bilateral testicular pain (x3 days) and acute abdominal pain (x1 day). Testicular pain originated after testicular trauma during sexual activity with his . Pain is described as an intermittent shooting pain that radiates to the abdomen. Testicular US in the ED unremarkable for acute abnormalities. Abdominal pain described as sharp shooting pain in the left upper quadrant that radiates to his back. He experienced associated nausea and vomiting. He was initially unable to tolerate PO secondary to severity of nausea and abdominal pain. He since has been able to tolerate fluids. CT abdomen/pelvis showed interval decrease in peripancreatic inflammatory stranding, no pancreatic pseudocyst or necrosis. Lipase at time of admission 2252.9 with elevated T bili. He was subsequently admitted to the hospitalist service for further treatment of acute pancreatitis. Over the course of patient's hospitalization, he has had significant improvement in pancreatitis symptoms. He is stable, tolerating excellent oral intake and is now medically cleared for discharge to inpatient psych facility for ongoing psychiatric care. Acute alcoholic pancreatitis: History of heavy alcohol abuse, currently 5-8 shots of vodka per day. Lipase trending downward 2252 --> 910. LFTs are also normalizing and total bilirubin is now within normal limits. He is no longer have abdominal pain, nausea or vomiting and tolerating medications/food by mouth. Alcohol abuse: History of heavy alcohol abuse, denies any history of alcohol withdrawal or DT. Last alcohol intake 2 days prior to admission. So far, he has had no signs of acute withdrawal. He is receiving supplementation with folic acid, thiamine, multivitamins. Alcohol cessation counseling provided. Hypomagnesemia: Suspect this is chronic, secondary to chronic alcohol use. Supplement orally. Hypokalemia: Suspect this is chronic, secondary to chronic hypomagnesemia. Supplement orally. Depression with Suicidal Ideation: History of previous suicide attempts. History of purposefully harming himself. Psych consulted due to concern for active SI and they have recommended full IVC with disposition of patient to facility that can provide appropriate treatment. Patient is medically cleared for discharge to appropriate treatment facility and awaiting transfer. Homicidal Ideation: History of bouts of uncontrolled anger and rage. Admitted to having homicidal ideation to psych. Treatment as stated above. Obesity (BMI 30-39.9): BMI 33.8. Diet and lifestyle modification recommended. Tobacco abuse: cessation counseling and nicotine patches provided. - Additional Information Discharge Diet: As Tolerated Discharge Activity: Activity As Tolerated [facility]: [facility] - Follow up as needed History of Present Illiness History of Present Illness: ROBBY PATEL is a 34 year old male Physical Exam Vital Signs: Temp Pulse Resp BP Pulse Ox 98.2 F 116 H 16 145/90 H 97 01/05/20 07:54 01/05/20 09:05 01/05/20 09:05 01/05/20 07:54 01/05/20 09:05 Intake & Output 01/04/20 01/05/20 01/06/20 06:59 06:59 06:59 Intake Total 1000 3000 Balance 1000 3000 Weight 102.4 kg 102.1 kg Results Laboratory Results: WBC 7.5 10^3/uL (4.0-10.5) 01/05/20 06:35 RBC 3.17 10^6/uL (4.35-5.55) L 01/05/20 06:35 Hgb 10.6 g/dL (13.5-17.0) L 01/05/20 06:35 Hct 29.9 % (37.9-51.0) L 01/05/20 06:35 MCV 94 fl (80-97) 01/05/20 06:35 MCH 33.3 pg (27.0-33.4) 01/05/20 06:35 MCHC 35.4 g/dL (32.0-36.0) 01/05/20 06:35 RDW 16.2 % (11.5-14.0) H 01/05/20 06:35 Plt Count 140 10^3/uL (150-450) L 01/05/20 06:35 Lymph % (Auto) 17.6 % (13-45) 01/05/20 06:35 Brooke % (Auto) 6.6 % (3-13) 01/05/20 06:35 Eos % (Auto) 2.1 % (0-6) 01/05/20 06:35 Baso % (Auto) 0.5 % (0-2) 01/05/20 06:35 Absolute Neuts (auto) 5.5 10^3/uL (1.7-8.2) 01/05/20 06:35 Absolute Lymphs (auto) 1.3 10^3/uL (0.5-4.7) 01/05/20 06:35 Absolute Monos (auto) 0.5 10^3/uL (0.1-1.4) 01/05/20 06:35 Absolute Eos (auto) 0.2 10^3/uL (0.0-0.6) 01/05/20 06:35 Absolute Basos (auto) 0.0 10^3/uL (0.0-0.2) 01/05/20 06:35 Seg Neutrophils % 73.2 % (42-78) 01/05/20 06:35 Platelet Estimate Cancelled 01/03/20 17:45 PT 13.7 SEC (11.4-15.4) 01/05/20 06:35 INR 1.03 01/05/20 06:35 Sodium 138.9 mmol/L (137-145) 01/05/20 06:35 Potassium 2.8 mmol/L (3.6-5.0) L* 01/05/20 06:35 Chloride 104 mmol/L (98-107) 01/05/20 06:35 Carbon Dioxide 25 mmol/L (22-30) 01/05/20 06:35 Anion Gap 10 (5-19) 01/05/20 06:35 BUN 3 mg/dL (7-20) L 01/05/20 06:35 Creatinine 0.56 mg/dL (0.52-1.25) 01/05/20 06:35 Est GFR ( Amer) > 60 (>60) 01/05/20 06:35 Est GFR (Non-Af Amer) Cancelled 01/03/20 17:45 Est GFR (MDRD) Non-Af > 60 (>60) 01/05/20 06:35 Glucose 81 mg/dL (75-110) 01/05/20 06:35 Hemoglobin A1c % 4.9 % (4.7-6.0) 01/05/20 06:35 Calcium 7.5 mg/dL (8.4-10.2) L 01/05/20 06:35 Magnesium 1.4 mg/dL (1.6-2.3) L 01/05/20 06:35 Total Bilirubin 0.6 mg/dL (0.2-1.3) 01/05/20 06:35 Direct Bilirubin 0.4 mg/dL (0.0-0.4) 01/05/20 06:35 Neonat Total Bilirubin Not Reportable 01/05/20 06:35 Neonat Direct Bilirubin Not Reportable 01/05/20 06:35 Neonat Indirect Bili Not Reportable 01/05/20 06:35 AST 35 U/L (17-59) 01/05/20 06:35 ALT 15 U/L (<50) 01/05/20 06:35 Alkaline Phosphatase 68 U/L (38-126) 01/05/20 06:35 Total Protein 6.0 g/dL (6.3-8.2) L 01/05/20 06:35 Albumin 3.3 g/dL (3.5-5.0) L 01/05/20 06:35 Triglycerides 110 mg/dL (<150) 01/05/20 06:35 Cholesterol 158.49 mg/dL (0-200) 01/05/20 06:35 LDL Cholesterol Direct 90 mg/dL (<100) 01/05/20 06:35 VLDL Cholesterol 22.0 mg/dL (10-31) 01/05/20 06:35 HDL Cholesterol 58 mg/dL (>40) 01/05/20 06:35 Lipase 910.6 U/L (23-300) H 01/05/20 06:35 EGFR Cancelled 01/03/20 17:45 TSH 2.06 uIU/mL (0.47-4.68) 01/05/20 06:35 Urine Color JACOB 01/03/20 17:25 Urine Appearance SLIGHTLY-CLOUDY 01/03/20 17:25 Urine pH 5.0 (5.0-9.0) 01/03/20 17:25 Ur Specific [place] 1.030 01/03/20 17:25 Urine Protein 100 mg/dL (NEGATIVE) H 01/03/20 17:25 Urine Glucose (UA) NEGATIVE mg/dL (NEGATIVE) 01/03/20 17:25 Urine Ketones TRACE mg/dL (NEGATIVE) H 01/03/20 17:25 Urine Blood NEGATIVE (NEGATIVE) 01/03/20 17:25 Urine Nitrite NEGATIVE (NEGATIVE) 01/03/20 17:25 Urine Bilirubin NEGATIVE (NEGATIVE) 01/03/20 17:25 Urine Urobilinogen 2.0 mg/dL (<2.0) H 01/03/20 17:25 Ur Leukocyte Esterase NEGATIVE (NEGATIVE) 01/03/20 17:25 Urine WBC (Auto) 3 /HPF 01/03/20 17:25 Urine RBC (Auto) 3 /HPF 01/03/20 17:25 Squamous Epi Cells Auto <1 /HPF 01/03/20 17:25 Urine Mucus (Auto) MANY /LPF 01/03/20 17:25 Urine Ascorbic Acid NEGATIVE (NEGATIVE) 01/03/20 17:25 Serum Alcohol < 10 mg/dL (NONE DETECTED) 01/03/20 18:59 Slides for Path Review Cancelled 01/03/20 17:45 Impressions: Scrotum Ultrasound 01/03/20 17:14 IMPRESSION: Left epididymal cyst. The testes are normal. No acute inflammatory changes are seen. Abdomen/Pelvis CT 01/03/20 20:03 IMPRESSION: 1. Interval decrease in peripancreatic inflammatory stranding. 2. No pancreatic pseudocyst or necrosis. Plan Health Concerns: Risk to himself and others. Chronic pancreatitis. Plan of Treatment: Full IVC as recommended by psych. Transfer to appropriate treatment center. Continue with pancreatic supplementation. Seek treatment for chronic alcohol abuse. Goals: Appropriate pyshciatric attention and treatment. Cessation of alcohol abuse. Time Spent: Greater than 30 Minutes Stroke Is this a Stroke Patient?: No Acute Heart Failure Is this a Heart Failure Patient?: No <CASS WILKERSON - Last Filed: 01/05/20 17:26> Impression - Admit/DC Date/PCP Admission Date/Primary Care Provider: 01/03/20 23:[facility] - Additional Information Resuscitation Status: Full Code History of Present Illiness History of Present Illness: ROBBY PATEL is a 34 year old male Physical Exam Vital Signs: Temp Pulse Resp BP Pulse Ox 98.2 F 116 H 16 145/90 H 97 01/05/20 10:00 01/05/20 09:05 01/05/20 09:05 01/05/20 07:54 01/05/20 09:05 Intake & Output 01/04/20 01/05/20 01/06/20 06:59 06:59 06:59 Intake Total 1000 3000 Balance 1000 3000 Weight 102.4 kg 102.1 kg Results Laboratory Results: WBC 7.5 10^3/uL (4.0-10.5) 01/05/20 06:35 RBC 3.17 10^6/uL (4.35-5.55) L 01/05/20 06:35 Hgb 10.6 g/dL (13.5-17.0) L 01/05/20 06:35 Hct 29.9 % (37.9-51.0) L 01/05/20 06:35 MCV 94 fl (80-97) 01/05/20 06:35 MCH 33.3 pg (27.0-33.4) 01/05/20 06:35 MCHC 35.4 g/dL (32.0-36.0) 01/05/20 06:35 RDW 16.2 % (11.5-14.0) H 01/05/20 06:35 Plt Count 140 10^3/uL (150-450) L 01/05/20 06:35 Lymph % (Auto) 17.6 % (13-45) 01/05/20 06:35 Brooke % (Auto) 6.6 % (3-13) 01/05/20 06:35 Eos % (Auto) 2.1 % (0-6) 01/05/20 06:35 Baso % (Auto) 0.5 % (0-2) 01/05/20 06:35 Absolute Neuts (auto) 5.5 10^3/uL (1.7-8.2) 01/05/20 06:35 Absolute Lymphs (auto) 1.3 10^3/uL (0.5-4.7) 01/05/20 06:35 Absolute Monos (auto) 0.5 10^3/uL (0.1-1.4) 01/05/20 06:35 Absolute Eos (auto) 0.2 10^3/uL (0.0-0.6) 01/05/20 06:35 Absolute Basos (auto) 0.0 10^3/uL (0.0-0.2) 01/05/20 06:35 Seg Neutrophils % 73.2 % (42-78) 01/05/20 06:35 Platelet Estimate Cancelled 01/03/20 17:45 PT 13.7 SEC (11.4-15.4) 01/05/20 06:35 INR 1.03 01/05/20 06:35 Sodium 138.9 mmol/L (137-145) 01/05/20 06:35 Potassium 2.8 mmol/L (3.6-5.0) L* 01/05/20 06:35 Chloride 104 mmol/L (98-107) 01/05/20 06:35 Carbon Dioxide 25 mmol/L (22-30) 01/05/20 06:35 Anion Gap 10 (5-19) 01/05/20 06:35 BUN 3 mg/dL (7-20) L 01/05/20 06:35 Creatinine 0.56 mg/dL (0.52-1.25) 01/05/20 06:35 Est GFR ( Amer) > 60 (>60) 01/05/20 06:35 Est GFR (Non-Af Amer) Cancelled 01/03/20 17:45 Est GFR (MDRD) Non-Af > 60 (>60) 01/05/20 06:35 Glucose 81 mg/dL (75-110) 01/05/20 06:35 Hemoglobin A1c % 4.9 % (4.7-6.0) 01/05/20 06:35 Calcium 7.5 mg/dL (8.4-10.2) L 01/05/20 06:35 Magnesium 1.4 mg/dL (1.6-2.3) L 01/05/20 06:35 Total Bilirubin 0.6 mg/dL (0.2-1.3) 01/05/20 06:35 Direct Bilirubin 0.4 mg/dL (0.0-0.4) 01/05/20 06:35 Neonat Total Bilirubin Not Reportable 01/05/20 06:35 Neonat Direct Bilirubin Not Reportable 01/05/20 06:35 Neonat Indirect Bili Not Reportable 01/05/20 06:35 AST 35 U/L (17-59) 01/05/20 06:35 ALT 15 U/L (<50) 01/05/20 06:35 Alkaline Phosphatase 68 U/L (38-126) 01/05/20 06:35 Total Protein 6.0 g/dL (6.3-8.2) L 01/05/20 06:35 Albumin 3.3 g/dL (3.5-5.0) L 01/05/20 06:35 Triglycerides 110 mg/dL (<150) 01/05/20 06:35 Cholesterol 158.49 mg/dL (0-200) 01/05/20 06:35 LDL Cholesterol Direct 90 mg/dL (<100) 01/05/20 06:35 VLDL Cholesterol 22.0 mg/dL (10-31) 01/05/20 06:35 HDL Cholesterol 58 mg/dL (>40) 01/05/20 06:35 Lipase 910.6 U/L (23-300) H 01/05/20 06:35 EGFR Cancelled 01/03/20 17:45 TSH 2.06 uIU/mL (0.47-4.68) 01/05/20 06:35 Urine Color JACOB 01/03/20 17:25 Urine Appearance SLIGHTLY-CLOUDY 01/03/20 17:25 Urine pH 5.0 (5.0-9.0) 01/03/20 17:25 Ur Specific [place] 1.030 01/03/20 17:25 Urine Protein 100 mg/dL (NEGATIVE) H 01/03/20 17:25 Urine Glucose (UA) NEGATIVE mg/dL (NEGATIVE) 01/03/20 17:25 Urine Ketones TRACE mg/dL (NEGATIVE) H 01/03/20 17:25 Urine Blood NEGATIVE (NEGATIVE) 01/03/20 17:25 Urine Nitrite NEGATIVE (NEGATIVE) 01/03/20 17:25 Urine Bilirubin NEGATIVE (NEGATIVE) 01/03/20 17:25 Urine Urobilinogen 2.0 mg/dL (<2.0) H 01/03/20 17:25 Ur Leukocyte Esterase NEGATIVE (NEGATIVE) 01/03/20 17:25 Urine WBC (Auto) 3 /HPF 01/03/20 17:25 Urine RBC (Auto) 3 /HPF 01/03/20 17:25 Squamous Epi Cells Auto <1 /HPF 01/03/20 17:25 Urine Mucus (Auto) MANY /LPF 01/03/20 17:25 Urine Ascorbic Acid NEGATIVE (NEGATIVE) 01/03/20 17:25 Serum Alcohol < 10 mg/dL (NONE DETECTED) 01/03/20 18:59 COVID-19 Source See comment 01/05/20 14:30 Slides for Path Review Cancelled 01/03/20 17:45 Impressions: Scrotum Ultrasound 01/03/20 17:14 IMPRESSION: Left epididymal cyst. The testes are normal. No acute inflammatory changes are seen. Abdomen/Pelvis CT 01/03/20 20:03
--- NOTE | 2020-01-05 12:58 | PDOC CONSULTATION ---
Consultation-Blank Consultation: Behavioral Health Consult: FULL IVC status as of yesterday (01/04/2020), with significant history of PTSD and SA (alcohol use). At 1043 Attending Hospitalist called informing patient is medically cleared. Evaluation with patient and at bedside from [id number]. Patient reported "I was doped up 3 times and lied to." He stated he was asked over and over about suicidal ideation and current stress which is why he answered the questions. He admitted he said he has had suicidal thoughts before and commented "who hasn't." He acknowledged 3 previous suicide attempts and stated it has been 4 years since any attempts. He stated further questions were asked of him when "I was doped up and confused." He admitted he said he had the perfect plan and mentioned tying piano cord around neck with hands sticking out so people would remember. He stated "it was a joke, something I remembered reading back in the 90s." He denied current suicidal ideation. Cecy ([phone]) was present at bedside. She too was upset saying "well we are going to lose everything now, my job, our home." She asked to speak with [facility] Medical Receptionist Biller and was informed the Medical Receptionist Biller would be provided her contact information. Psycheducated both patient and on medication changes and why, IVC process and next step being placement, and plan which included referral being faxed to [facility] today. They inquired about making complaint and were informed there is a grievance process and this clinician would reach out to patient advocate (was after business hours, called [facility] asking for patient advocate, left voice mail). Also explained inpatient could be helpful in terms of cutting back on alcohol and his PTSD diagnosis. Clinical Presentation: Suicidal ideation Poor insight/judgment/impulse control as evidenced by reaction when told IVC (yelling, pulled out IV). History of PTSD and alcohol use with recent alcohol cut back Medication recommendations made by the psychiatric medication provider Dr. Froilan WILLIAMSON., includes: Change Thorazine to 100MG every 6 hours as needed Change Cogentin to 1MG to be administered with Thorazine (at least twice daily if Thorazine administered) Add Effexor 37.5MG twice a day for depression/increase energy and focus/decrease alcohol cravings Add Buspar 5MG twice a day for anxiety/calming effect/depression/sleep Add Zyprexa 2.5MG twice a day for mood stabilization/impulse control Impression/Plan: At 1043 notified patient is medically cleared. Recommendation to maintain FULL IVC and seek inpatient hospitalization based on behaviors displayed last evening (yelling, pulled out IV, called [facility] saying he was being held against his will) which demonstrated poor insight/judgment/impulse control. Also with patient cutting back on drinking alcohol and PTSD diagnosis inpatient hospitalization would be beneficial and continued support. Consulted with Dr. Kelly regarding the management and care of patient. Attending Hospitalist made aware of recommendations.
[2020-01-05] MEDS ORDERED: POTASSIUM CHLORIDE 10 MEQ TABLET.ER PO SCH (15:00)
[2020-01-05] MEDS ORDERED: CHLORPROMAZINE HCL INJ 25 MG/1 ML AMPULE IM PRN ×2 (16:32→17:12)
[2020-01-05] MEDS ORDERED: BENZTROPINE MESYLATE 1 MG TABLET PO PRN (17:12)
--- NOTE | 2020-01-05 17:28 | PDOC PROGRESS REPORT ---
Subjective Progress Note for:: 01/05/20 Subjective:: He has been tolerating excellent oral intake. Taking all medications by mouth. No nausea/vomiting. Reason For Visit: ACUTE PANCREATITIS,ABDOMINAL PAIN,NAUSEA,VOMITING Physical Exam Vital Signs: Temp Pulse Resp BP Pulse Ox 98.2 F 116 H 16 145/90 H 97 01/05/20 10:00 01/05/20 09:05 01/05/20 09:05 01/05/20 07:54 01/05/20 09:05 Intake & Output 01/04/20 01/05/20 01/06/20 06:59 06:59 06:59 Intake Total 1000 3000 Balance 1000 3000 Weight 102.4 kg 102.1 kg General appearance: PRESENT: no acute distress, cooperative Mouth exam: PRESENT: moist GI/Abdominal exam: PRESENT: normal bowel sounds, soft Extremities exam: ABSENT: pedal edema Neurological exam: PRESENT: alert, awake Psychiatric exam: PRESENT: agitated, anxious Focused psych exam: PRESENT: restlessness Skin exam: ABSENT: rash Results Laboratory Results: 01/05/20 06:35 01/05/20 06:35 01/05/20 01/05/20 01/05/20 06:35 06:35 06:35 WBC 7.5 RBC 3.17 L Hgb 10.6 L Hct 29.9 L MCV 94 MCH 33.3 MCHC 35.4 RDW 16.2 H Plt Count 140 L Seg Neutrophils % 73.2 Sodium 138.9 Potassium 2.8 L* Chloride 104 Carbon Dioxide 25 Anion Gap 10 BUN 3 L Creatinine 0.56 Est GFR ( Amer) > 60 Glucose 81 Calcium 7.5 L Magnesium 1.4 L Total Bilirubin 0.6 AST 35 Alkaline Phosphatase 68 Total Protein 6.0 L Albumin 3.3 L Triglycerides 110 Cholesterol 158.49 LDL Cholesterol Direct 90 VLDL Cholesterol 22.0 HDL Cholesterol 58 Lipase 910.6 H TSH 2.06 Impressions: Scrotum Ultrasound 01/03/20 17:14 IMPRESSION: Left epididymal cyst. The testes are normal. No acute inflammatory changes are seen. Abdomen/Pelvis CT 01/03/20 20:03 IMPRESSION: 1. Interval decrease in peripancreatic inflammatory stranding. 2. No pancreatic pseudocyst or necrosis. Assessment and Plan - Diagnosis (1) Acute alcoholic pancreatitis Qualifiers: Acute pancreatitis complication: no infection or necrosis Qualified Code( s): K85.20 - Alcohol induced acute pancreatitis without necrosis or infection Is this a current diagnosis for this admission?: Yes (2) Depression with suicidal ideation Is this a current diagnosis for this admission?: Yes (3) Homicidal ideations Is this a current diagnosis for this admission?: Yes (4) Hypokalemia Is this a current diagnosis for this admission?: Yes (5) Hypomagnesemia Is this a current diagnosis for this admission?: Yes (6) Recurrent pancreatitis Is this a current diagnosis for this admission?: Yes (7) Alcohol abuse Is this a current diagnosis for this admission?: Yes (8) Obesity (BMI 30-39.9) Is this a current diagnosis for this admission?: Yes (9) PTSD (post-traumatic stress disorder) Is this a current diagnosis for this admission?: Yes (10) Tobacco abuse Is this a current diagnosis for this admission?: Yes - Plan Summary Summary: Mr. ROBBY PATEL is a 34 year old [place] with past medical history of depression, tobacco abuse, heavy alcohol abuse, and alcoholic pancreatitis who presented to the emergency department with concerns of bilateral testicular pain (x3 days) and acute abdominal pain (x1 day). Testicular pain originated after testicular trauma during sexual activity with his . Pain is described as an intermittent shooting pain that radiates to the abdomen. Testicular US in the ED unremarkable for acute abnormalities. Abdominal pain described as sharp shooting pain in the left upper quadrant that radiates to his back. He experienced associated nausea and vomiting. He was initially unable to tolerate PO secondary to severity of nausea and abdominal pain. He since has been able to tolerate fluids. CT abdomen/pelvis showed interval decrease in peripancreatic inflammatory stranding, no pancreatic pseudocyst or necrosis. Lipase at time of admission 2252.9 with elevated T bili. He was subsequently admitted to the hospitalist service for further treatment of acute pancreatitis. Over the course of patient's hospitalization, he has had significant improvement in pancreatitis symptoms. He is stable, tolerating excellent oral intake and is now medically cleared for discharge to inpatient psych facility for ongoing psychiatric care. Acute alcoholic pancreatitis: History of heavy alcohol abuse, currently 5-8 shots of vodka per day. Lipase trending downward 2252 --> 910. LFTs are also normalizing and total bilirubin is now within normal limits. He is no longer have abdominal pain, nausea or vomiting and tolerating medications/food by mouth. Alcohol abuse: History of heavy alcohol abuse, denies any history of alcohol withdrawal or DT. Last alcohol intake 2 days prior to admission. So far, he has had no signs of acute withdrawal. He is receiving supplementation with folic acid, thiamine, multivitamins. Alcohol cessation counseling provided. Hypomagnesemia: Suspect this is chronic, secondary to chronic alcohol use. Supplement orally. Hypokalemia: Suspect this is chronic, secondary to chronic hypomagnesemia. Supplement orally. Depression with Suicidal Ideation: History of previous suicide attempts. History of purposefully harming himself. Psych consulted due to concern for active SI and they have recommended full IVC with disposition of patient to facility that can provide appropriate treatment. Patient is medically cleared for discharge to appropriate treatment facility and awaiting transfer. Homicidal Ideation: History of bouts of uncontrolled anger and rage. Admitted to having homicidal ideation to psych. Treatment as stated above. Obesity (BMI 30-39.9): BMI 33.8. Diet and lifestyle modification recommended. Tobacco abuse: cessation counseling and nicotine patches provided. - Time Time Spent with patient: 35 or more minutes Anticipated Discharge Disposition: Psych Hospital/Unit Anticipated Discharge Timeframe: within 48 hours
[2020-01-05] MEDS: OLANZAPINE 2.5 MG TABLET PO SCH (18:46)
[2020-01-05] MEDS: VENLAFAXINE HCL 37.5 MG CAP.SR.24H PO SCH (22:06)
[2020-01-05] MEDS: BUSPIRONE HCL 10 MG TABLET PO SCH (22:06)
[2020-01-06] MEDS: FAMOTIDINE INJ/PF 20 MG/2 ML SDV IV SCH (09:09)
[2020-01-06] MEDS: THIAMINE HCL 100 MG TABLET PO SCH (09:10)
[2020-01-06] MEDS: DIAZEPAM 5 MG TABLET PO SCH ×2 (09:10→14:59)
[2020-01-06] MEDS: BUSPIRONE HCL 10 MG TABLET PO SCH ×2 (09:11→21:15)
[2020-01-06] MEDS: PANTOPRAZOLE SODIUM 40 MG TABLET.DR PO SCH ×2 (09:11→17:28)
[2020-01-06] MEDS: FOLIC ACID 1 MG TABLET PO SCH (09:11)
[2020-01-06] MEDS: MULTIVITAMIN TABLET PO SCH (09:11)
[2020-01-06] MEDS: MAGNESIUM OXIDE 400 MG TABLET PO SCH ×3 (09:11→17:29)
[2020-01-06] MEDS: OLANZAPINE 2.5 MG TABLET PO SCH ×2 (09:12→17:29)
[2020-01-06] MEDS: VENLAFAXINE HCL 37.5 MG CAP.SR.24H PO SCH ×2 (09:12→21:15)
[2020-01-06 09:22] LABS: ANION GAP 9 (5-19); BLOOD UREA NITROGEN 3 mg/dL (7-20); CALCIUM 8.1 mg/dL (8.4-10.2); CARBON DIOXIDE 23 mmol/L (22-30); CHLORIDE 106 mmol/L (98-107); GLUCOSE 111 mg/dL (75-110); POTASSIUM 3.4 mmol/L (3.6-5.0)
--- NOTE | 2020-01-06 15:38 | PDOC PROGRESS REPORT ---
Subjective Progress Note for:: 01/06/20 Subjective:: He feels physically well, denies abdominal pain, nausea or vomiting. Tolerating oral intake and oral medications. Reason For Visit: ACUTE PANCREATITIS,ABDOMINAL PAIN,NAUSEA,VOMITING Physical Exam Vital Signs: Temp Pulse Resp BP Pulse Ox 97.9 F 104 H 16 121/86 H 98 01/06/20 12:09 01/06/20 12:09 01/06/20 12:09 01/06/20 08:11 01/06/20 12:09 Intake & Output 01/05/20 01/06/20 01/07/20 06:59 06:59 06:59 Intake Total 3000 120 120 Balance 3000 120 120 Weight 102.1 kg 102.1 kg General appearance: PRESENT: no acute distress, cooperative Eye exam: ABSENT: scleral icterus Mouth exam: PRESENT: moist Neck exam: ABSENT: JVD Respiratory exam: PRESENT: clear to auscultation maría elena, unlabored Cardiovascular exam: PRESENT: RRR GI/Abdominal exam: PRESENT: normal bowel sounds, soft Extremities exam: ABSENT: pedal edema Neurological exam: PRESENT: alert, awake Psychiatric exam: PRESENT: depressed Skin exam: ABSENT: rash Results Laboratory Results: 01/05/20 06:35 01/06/20 08:36 01/06/20 01/06/20 08:36 08:36 Sodium 138.2 Potassium 3.4 L Chloride 106 Carbon Dioxide 23 Anion Gap 9 BUN 3 L Creatinine 0.54 Est GFR ( Amer) > 60 Glucose 111 H Calcium 8.1 L Magnesium 1.5 L Lipase 893.3 H Impressions: Scrotum Ultrasound 01/03/20 17:14 IMPRESSION: Left epididymal cyst. The testes are normal. No acute inflammatory changes are seen. Abdomen/Pelvis CT 01/03/20 20:03 IMPRESSION: 1. Interval decrease in peripancreatic inflammatory stranding. 2. No pancreatic pseudocyst or necrosis. Assessment and Plan - Diagnosis (1) Acute alcoholic pancreatitis Qualifiers: Acute pancreatitis complication: no infection or necrosis Qualified Code(s): K85.20 - Alcohol induced acute pancreatitis without necrosis or infection Is this a current diagnosis for this admission?: Yes (2) Depression with suicidal ideation Is this a current diagnosis for this admission?: Yes (3) Homicidal ideations Is this a current diagnosis for this admission?: Yes (4) Hypokalemia Is this a current diagnosis for this admission?: Yes (5) Hypomagnesemia Is this a current diagnosis for this admission?: Yes (6) Recurrent pancreatitis Is this a current diagnosis for this admission?: Yes (7) Alcohol abuse Is this a current diagnosis for this admission?: Yes (8) Obesity (BMI 30-39.9) Is this a current diagnosis for this admission?: Yes (9) PTSD (post-traumatic stress disorder) Is this a current diagnosis for this admission?: Yes (10) Tobacco abuse Is this a current diagnosis for this admission?: Yes - Plan Summary Summary: Mr. ROBBY PATEL is a 34 year old [place] with past medical history of depression, tobacco abuse, heavy alcohol abuse, and alcoholic pancreatitis who presented to the emergency department with concerns of bilateral testicular pain (x3 days) and acute abdominal pain (x1 day). Testicular pain originated after testicular trauma during sexual activity with his . Pain is described as an intermittent shooting pain that radiates to the abdomen. Testicular US in the ED unremarkable for acute abnormalities. Abdominal pain described as sharp shooting pain in the left upper quadrant that radiates to his back. He experienced associated nausea and vomiting. He was initially unable to tolerate PO secondary to severity of nausea and abdominal pain. He since has been able to tolerate fluids. CT abdomen/pelvis showed interval decrease in peripancreatic inflammatory stranding, no pancreatic pseudocyst or necrosis. Lipase at time of admission 2252.9 with elevated T bili. He was subsequently admitted to the hospitalist service for further treatment of acute pancreatitis. Over the course of patient's hospitalization, he has had significant improvement in pancreatitis symptoms. He is stable, tolerating excellent oral intake and is now medically cleared for discharge to inpatient psych facility for ongoing psychiatric care. Acute alcoholic pancreatitis: History of heavy alcohol abuse, currently 5-8 shots of vodka per day. Lipase trending down: 2252 --> 910. LFTs are also normalizing and total bilirubin is now within normal limits. He is no longer have abdominal pain, nausea or vomiting and tolerating medications/food by mouth. Alcohol abuse: History of heavy alcohol abuse, denies any history of alcohol withdrawal or DT. Last alcohol intake 2 days prior to admission. So far, he has had no signs of acute withdrawal. He is receiving supplementation with folic acid, thiamine, multivitamins. Alcohol cessation counseling provided. Hypomagnesemia: Suspect this is chronic, secondary to chronic alcohol use. Supplement orally. Hypokalemia: Suspect this is chronic, secondary to chronic hypomagnesemia. Supplement orally. Depression with Suicidal Ideation: History of previous suicide attempts. History of purposefully harming himself. Psych consulted due to concern for active SI and they have recommended full IVC with disposition of patient to facility that can provide appropriate treatment. Patient is medically cleared for discharge to appropriate treatment facility and awaiting transfer. Homicidal Ideation: History of bouts of uncontrolled anger and rage. Admitted to having homicidal ideation to psych. Treatment as stated above. Obesity (BMI 30-39.9): BMI 33.8. Diet and lifestyle modification recommended. Tobacco abuse: cessation counseling and nicotine patches provided. - Time Time Spent with patient: 35 or more minutes Anticipated Discharge Disposition: Psych Hospital/Unit Anticipated Discharge Timeframe: within 24 hours
--- NOTE | 2020-01-06 15:46 | PDOC CONSULTATION ---
Consultation-Blank Consultation: Behavioral Health Consult: Patient status FULL Involuntary Commitment after making suicidal statements with history of PTSD and alcohol use (he reported he has been weening off). Patient lacked emotional regulation and impulse control during initial assessment of suicidal ideation. Evaluation with patient and at bedside from [id number]. Patient reported "better" when asked how he was feeling today. He stated "I am really tired" and was psychoeducated on how sometimes new medications cause that the first 5 days or so until the body adjusts. He denied any other side effects and none observed. He stated "not at all" when asked about thoughts of wanting to hurt/harm/kill self. He denied homicidal ideation. was present and noted his hands were shaky when he was pulling himself up on the bed rails. Patient stated he did not even notice. Clinical Presentation: Suicidal ideation Poor insight/judgment/impulse control as evidenced by reaction when told IVC (yelling, pulled out IV). History of PTSD and alcohol use with recent alcohol cut back Medication recommendations made by the psychiatric medication provider Dr. Froilan WILLIAMSON., includes: Discontinue Ativan 2MH IV every 2 hours as needed for CIWA as he has not demonstrated any signs or symptoms of alcohol m withdrawal Discontinue Valium 10MG three times a day Discontinue Restoril 7.5MG at night as needed for sleep Impression/Plan: Recommendation to maintain Full Involuntary Commitment. Medication adjustments took place last evening, with further recommendations today to discontinue some medications, and want to allow for longer stabilization given patient's poor emotion regulation and impulse control issues, combined with weening off alcohol and history of PTSD. Consulted with Dr. Kelly regarding the management and care of patient. Attending Hospitalist made aware of recommendations.
[2020-01-06] MEDS: POTASSIUM CHLORIDE 10 MEQ TABLET.ER PO SCH (17:29)
[2020-01-06] MEDS: OXYCODONE HCL IR 5 MG TABLET PO PRN (18:43)
[2020-01-07] MEDS: OXYCODONE HCL IR 5 MG TABLET PO PRN ×3 (03:01→17:07)
[2020-01-07] MEDS: POTASSIUM CHLORIDE 10 MEQ TABLET.ER PO SCH (10:11)
[2020-01-07] MEDS: FOLIC ACID 1 MG TABLET PO SCH (10:11)
[2020-01-07] MEDS: MAGNESIUM OXIDE 400 MG TABLET PO SCH ×2 (10:11→16:19)
[2020-01-07] MEDS: MULTIVITAMIN TABLET PO SCH (10:12)
[2020-01-07] MEDS: OLANZAPINE 2.5 MG TABLET PO SCH ×2 (10:12→17:08)
[2020-01-07] MEDS: THIAMINE HCL 100 MG TABLET PO SCH (10:12)
[2020-01-07] MEDS: BUSPIRONE HCL 10 MG TABLET PO SCH (10:12)
[2020-01-07] MEDS: VENLAFAXINE HCL 37.5 MG CAP.SR.24H PO SCH (10:12)
[2020-01-07] MEDS: PANTOPRAZOLE SODIUM 40 MG TABLET.DR PO SCH ×2 (10:13→16:19)
--- NOTE | 2020-01-07 15:07 | PDOC PROGRESS REPORT ---
Subjective Progress Note for:: 01/07/20 Subjective:: He feels well. States that the medications he is on are making him feel more calm and happy. Adamantly denies SI/HI today, stating that he was "doped on drugs" when he made those comments in the past. Several (>4) attempts made by phlebotomy today to collect labs to recheck K, Mg, but unsuccessful due to hard stick, and patient is now requesting that we stop attempting blood draws today. Reason For Visit: ACUTE PANCREATITIS,ABDOMINAL PAIN,NAUSEA,VOMITING Physical Exam Vital Signs: Temp Pulse Resp BP Pulse Ox 98.0 F 97 17 135/96 H 98 01/07/20 13:14 01/07/20 13:14 01/07/20 07:17 01/07/20 13:14 01/07/20 13:14 Intake & Output 01/06/20 01/07/20 01/08/20 06:59 06:59 06:59 Intake Total 120 1040 380 Balance 120 1040 380 Weight 102.1 kg 102 kg General appearance: PRESENT: no acute distress, cooperative, obese Eye exam: ABSENT: scleral icterus Mouth exam: PRESENT: moist Neck exam: ABSENT: JVD Respiratory exam: PRESENT: clear to auscultation maría elena Cardiovascular exam: PRESENT: RRR GI/Abdominal exam: PRESENT: normal bowel sounds, soft Extremities exam: ABSENT: pedal edema Musculoskeletal exam: PRESENT: ambulatory Neurological exam: PRESENT: alert, awake Psychiatric exam: PRESENT: appropriate affect Focused psych exam: ABSENT: restlessness Skin exam: ABSENT: rash Results Laboratory Results: 01/05/20 06:35 01/06/20 08:36 Impressions: Scrotum Ultrasound 01/03/20 17:14 IMPRESSION: Left epididymal cyst. The testes are normal. No acute in flammatory changes are seen. Abdomen/Pelvis CT 01/03/20 20:03 IMPRESSION: 1. Interval decrease in peripancreatic inflammatory stranding. 2. No pancreatic pseudocyst or necrosis. Assessment and Plan - Diagnosis (1) Acute alcoholic pancreatitis Qualifiers: Acute pancreatitis complication: no infection or necrosis Qualified Code(s): K85.20 - Alcohol induced acute pancreatitis without necrosis or infection Is this a current diagnosis for this admission?: Yes (2) Depression with suicidal ideation Is this a current diagnosis for this admission?: Yes (3) Homicidal ideations Is this a current diagnosis for this admission?: Yes (4) Hypokalemia Is this a current diagnosis for this admission?: Yes (5) Hypomagnesemia Is this a current diagnosis for this admission?: Yes (6) Recurrent pancreatitis Is this a current diagnosis for this admission?: Yes (7) Alcohol abuse Is this a current diagnosis for this admission?: Yes (8) Obesity (BMI 30-39.9) Is this a current diagnosis for this admission?: Yes (9) PTSD (post-traumatic stress disorder) Is this a current diagnosis for this admission?: Yes (10) Tobacco abuse Is this a current diagnosis for this admission?: Yes - Plan Summary Summary: Mr. ROBBY PATEL is a 34 year old [place] with past medical history of depression, tobacco abuse, heavy alcohol abuse, and alcoholic pancreatitis who presented to the emergency department with concerns of bilateral testicular pain (x3 days) and acute abdominal pain (x1 day). Testicular pain originated after testicular trauma during sexual activity with his . Pain is described as an intermittent shooting pain that radiates to the abdomen. Testicular US in the ED unremarkable for acute abnormalities. Abdominal pain described as sharp shooting pain in the left upper quadrant that radiates to his back. He experienced associated nausea and vomiting. He was initially unable to tolerate PO secondary to severity of nausea and abdominal pain. He since has been able to tolerate fluids. CT abdomen/pelvis showed interval decrease in peripancreatic inflammatory stranding, no pancreatic pseudocyst or necrosis. Lipase at time of admission 2252.9 with elevated T bili. He was subsequently admitted to the hospitalist service for further treatment of acute pancreatitis. Over the course of patient's hospitalization, he has had significant improvement in pancreatitis symptoms. He is stable, tolerating excellent oral intake and is now medically cleared for discharge, although he is now awaiting either transfer to an inpatient psych facility vs psych clearance for discharge home. Acute alcoholic pancreatitis: History of heavy alcohol abuse, currently 5-8 shots of vodka per day. Lipase trending down: 2252 --> 893. LFTs are also normalizing and total bilirubin is now within normal limits. He is no longer have abdominal pain, nausea or vomiting and tolerating medications/food by mouth. Alcohol abuse: History of heavy alcohol abuse, denies any history of alcohol withdrawal or DT. Last alcohol intake 2 days prior to admission. So far, he has had no signs of acute withdrawal. He is receiving supplementation with folic acid, thiamine, multivitamins. Alcohol cessation counseling provided. Hypomagnesemia: Suspect this is chronic, secondary to chronic alcohol use. Supplement orally. Hypokalemia: Suspect this is chronic, secondary to chronic hypomagnesemia. Supplement orally. Depression with Suicidal Ideation, Homicidal Ideation: History of previous suicide attempts. History of purposefully harming himself. Psych consulted due to concern for active SI and they have recommended full IVC with disposition of patient to facility that can provide appropriate treatment. Patient is medically cleared for discharge to appropriate treatment facility and awaiting transfer. * I will ask psych to re-evaluate patient again today as he appears much more calm, peaceful and denies SI/HI since making the medication changes recommended by psych. Obesity (BMI 30-39.9): BMI 34. Diet and lifestyle modification recommended. Tobacco abuse: cessation counseling and nicotine patches provided. - Time Time Spent with patient: 35 or more minutes Anticipated Discharge Disposition: Home, Self Care Anticipated Discharge Timeframe: within 24 hours
[2020-01-07] MEDS ORDERED: POTASSIUM CHLORIDE 10 MEQ TABLET.ER PO SCH (16:00)
[2020-01-07 17:26] VITALS: BP 136/98
--- NOTE | 2020-01-07 17:28 | PDOC DISCHARGE SUMMARY ---
Impression - Admit/DC Date/PCP Admission Date/Primary Care Provider: 01/03/20 23:[facility] Discharge Date: 01/07/20 - Discharge Diagnosis (1) Acute alcoholic pancreatitis Is this a current diagnosis for this admission?: Yes (2) Depression with suicidal ideation Is this a current diagnosis for this admission?: Yes (3) Homicidal ideations Is this a current diagnosis for this admission?: Yes (4) Hypokalemia Is this a current diagnosis for this admission?: Yes (5) Hypomagnesemia Is this a current diagnosis for this admission?: Yes (6) Recurrent pancreatitis Is this a current diagnosis for this admission?: Yes (7) Alcohol abuse Is this a current diagnosis for this admission?: Yes (8) Obesity (BMI 30-39.9) Is this a current diagnosis for this admission?: Yes (9) PTSD (post-traumatic stress disorder) Is this a current diagnosis for this admission?: Yes (10) Tobacco abuse Is this a current diagnosis for this admission?: Yes - Assessment Summary: Mr. ROBBY PATEL is a 34 year old [place] with past medical history of depression, tobacco abuse, heavy alcohol abuse, and alcoholic pancreatitis who presented to the emergency department with concerns of bilateral testicular pain (x3 days) and acute abdominal pain (x1 day). Testicular pain originated after testicular trauma during sexual activity with his . Pain is described as an intermittent shooting pain that radiates to the abdomen. Testicular US in the ED unremarkable for acute abnormalities. Abdominal pain described as sharp shooting pain in the left upper quadrant that radiates to his back. He experienced as sociated nausea and vomiting. He was initially unable to tolerate PO secondary to severity of nausea and abdominal pain. He since has been able to tolerate fluids. CT abdomen/pelvis showed interval decrease in peripancreatic inflammatory stranding, no pancreatic pseudocyst or necrosis. Lipase at time of admission 2252.9 with elevated T bili. He was subsequently admitted to the hospitalist service for further treatment of acute pancreatitis. Over the course of patient's hospitalization, he has had significant improvement in pancreatitis symptoms. He is stable, tolerating excellent oral intake and is now medically cleared for discharge, although he is now awaiting either transfer to an inpatient psych facility vs psych clearance for discharge home. Acute alcoholic pancreatitis: History of heavy alcohol abuse, currently 5-8 shots of vodka per day. Lipase trending down: 2252 --> 893. LFTs are also normalizing and total bilirubin is now within normal limits. He is no longer have abdominal pain, nausea or vomiting and tolerating medications/food by mouth. Alcohol abuse: History of heavy alcohol abuse, denies any history of alcohol wi thdrawal or DT. Last alcohol intake 2 days prior to admission. So far, he has had no signs of acute withdrawal. He is receiving supplementation with folic acid, thiamine, multivitamins. Alcohol cessation counseling provided. Hypomagnesemia: Suspect this is chronic, secondary to chronic alcohol use. Supplemented orally. Hypokalemia: Suspect this is chronic, secondary to chronic hypomagnesemia. Supplemented orally. Depression with Suicidal Ideation, Homicidal Ideation: History of previous suicide attempts. History of purposefully harming himself. Psych consulted due to concern for active SI on admission, and they initially recommended full IVC with disposition of patient to facility that can provide appropriate treatment. He was started on several new psych medications, when subsequent improvement in his mood and outlook, and he is now denying SI/HI to all providers. Patient has now been both medically and psychiatrically cleared for discharge to home and IVC has been lifted. [facility] and [facility]. Obesity (BMI 30-39.9): BMI 34. Diet and lifestyle modification recommended. Tobacco abuse: cessation counseling and nicotine patches provided. - Additional Information Resuscitation Status: Full Code Discharge Diet: Regular Discharge Activity: Activity As Tolerated Referrals: PSYCH,FACILITY [Other] Prescriptions: Buspirone HCl 1 tab PO BID #60 tab Venlafaxine HCl ER [Effexor Xr 37.5 mg Cap.sr] 37.5 mg PO Q12 #60 cap.sr.24h Olanzapine [Zyprexa 2.5 mg Tablet] 2.5 mg PO BID #60 tablet Home Medications: Buspirone HCl 1 tab PO BID #60 tab 01/07/20 Olanzapine [Zyprexa 2.5 mg Tablet] 2.5 mg PO BID #60 tablet 01/07/20 Venlafaxine HCl ER [Effexor Xr 37.5 mg Cap.sr] 37.5 mg PO Q12 #60 cap.sr.24h 01/07/20 History of Present Illiness History of Present Illness: ROBBY PATEL is a 34 year old male Physical Exam Vital Signs: Temp Pulse Resp BP Pulse Ox 98.2 F 95 17 131/95 H 98 01/07/20 16:49 01/07/20 16:49 01/07/20 16:49 01/07/20 16:49 01/07/20 16:49 Intake & Output 01/06/20 01/07/20 01/08/20 06:59 06:59 06:59 Intake Total 120 1040 380 Balance 120 1040 380 Weight 102.1 kg 102 kg Results Laboratory Results: WBC 7.5 10^3/uL (4.0-10.5) 01/05/20 06:35 RBC 3.17 10^6/uL (4.35-5.55) L 01/05/20 06:35 Hgb 10.6 g/dL (13.5-17.0) L 01/05/20 06:35 Hct 29.9 % (37.9-51.0) L 01/05/20 06:35 MCV 94 fl (80-97) 01/05/20 06:35 MCH 33.3 pg (27.0-33.4) 01/05/20 06:35 MCHC 35.4 g/dL (32.0-36.0) 01/05/20 06:35 RDW 16.2 % (11.5-14.0) H 01/05/20 06:35 Plt Count 140 10^3/uL (150-450) L 01/05/20 06:35 Lymph % (Auto) 17.6 % (13-45) 01/05/20 06:35 [place] % (Auto) 6.6 % (3-13) 01/05/20 06:35 Eos % (Auto) 2.1 % (0-6) 01/05/20 06:35 Baso % (Auto) 0.5 % (0-2) 01/05/20 06:35 Absolute Neuts (auto) 5.5 10^3/uL (1.7-8.2) 01/05/20 06:35 Absolute Lymphs (auto) 1.3 10^3/uL (0.5-4.7) 01/05/20 06:35 Absolute Monos (auto) 0.5 10^3/uL (0.1-1.4) 01/05/20 06:35 Absolute Eos (auto) 0.2 10^3/uL (0.0-0.6) 01/05/20 06:35 Absolute Basos (auto) 0.0 10^3/uL (0.0-0.2) 01/05/20 06:35 Seg Neutrophils % 73.2 % (42-78) 01/05/20 06:35 Platelet Estimate Cancelled 01/03/20 17:45 PT 13.7 SEC (11.4-15.4) 01/05/20 06:35 INR 1.03 01/05/20 06:35 Sodium 138.2 mmol/L (137-145) 01/06/20 08:36 Potassium 3.4 mmol/L (3.6-5.0) L 01/06/20 08:36 Chloride 106 mmol/L (98-107) 01/06/20 08:36 Carbon Dioxide 23 mmol/L (22-30) 01/06/20 08:36 Anion Gap 9 (5-19) 01/06/20 08:36 BUN 3 mg/dL (7-20) L 01/06/20 08:36 Creatinine 0.54 mg/dL (0.52-1.25) 01/06/20 08:36 Est GFR ( Amer) > 60 (>60) 01/06/20 08:36 Est GFR (Non-Af Amer) Cancelled 01/03/20 17:45 Est GFR (MDRD) Non-Af > 60 (>60) 01/06/20 08:36 Glucose 111 mg/dL (75-110) H 01/06/20 08:36 Hemoglobin A1c % 4.9 % (4.7-6.0) 01/05/20 06:35 Calcium 8.1 mg/dL (8.4-10.2) L 01/06/20 08:36 Magnesium 1.5 mg/dL (1.6-2.3) L 01/06/20 08:36 Total Bilirubin 0.6 mg/dL (0.2-1.3) 01/05/20 06:35 Direct Bilirubin 0.4 mg/dL (0.0-0.4) 01/05/20 06:35 Neonat Total Bilirubin Not Reportable 01/05/20 06:35 Neonat Direct Bilirubin Not Reportable 01/05/20 06:35 Neonat Indirect Bili Not Reportable 01/05/20 06:35 AST 35 U/L (17-59) 01/05/20 06:35 ALT 15 U/L (<50) 01/05/20 06:35 Alkaline Phosphatase 68 U/L (38-126) 01/05/20 06:35 Total Protein 6.0 g/dL (6.3-8.2) L 01/05/20 06:35 Albumin 3.3 g/dL (3.5-5.0) L 01/05/20 06:35 Triglycerides 110 mg/dL (<150) 01/05/20 06:35 Cholesterol 158.49 mg/dL (0-200) 01/05/20 06:35 LDL Cholesterol Direct 90 mg/dL (<100) 01/05/20 06:35 VLDL Cholesterol 22.0 mg/dL (10-31) 01/05/20 06:35 HDL Cholesterol 58 mg/dL (>40) 01/05/20 06:35 Lipase 893.3 U/L (23-300) H 01/06/20 08:36 EGFR Cancelled 01/03/20 17:45 TSH 2.06 uIU/mL (0.47-4.68) 01/05/20 06:35 Urine Color JACOB 01/03/20 17:25 Urine Appearance SLIGHTLY-CLOUDY 01/03/20 17:25 Urine pH 5.0 (5.0-9.0) 01/03/20 17:25 Ur Specific [place] 1.030 01/03/20 17:25 Urine Protein 100 mg/dL (NEGATIVE) H 01/03/20 17:25 Urine Glucose (UA) NEGATIVE mg/dL (NEGATIVE) 01/03/20 17:25 Urine Ketones TRACE mg/dL (NEGATIVE) H 01/03/20 17:25 Urine Blood NEGATIVE (NEGATIVE) 01/03/20 17:25 Urine Nitrite NEGATIVE (NEGATIVE) 01/03/20 17:25 Urine Bilirubin NEGATIVE (NEGATIVE) 01/03/20 17:25 Urine Urobilinogen 2.0 mg/dL (<2.0) H 01/03/20 17:25 Ur Leukocyte Esterase NEGATIVE (NEGATIVE) 01/03/20 17:25 Urine WBC (Auto) 3 /HPF 01/03/20 17:25 Urine RBC (Auto) 3 /HPF 01/03/20 17:25 Squamous Epi Cells Auto <1 /HPF 01/03/20 17:25 Urine Mucus (Auto) MANY /LPF 01/03/20 17:25 Urine Ascorbic Acid NEGATIVE (NEGATIVE) 01/03/20 17:25 Serum Alcohol < 10 mg/dL (NONE DETECTED) 01/03/20 18:59 COVID-19 Source See comment 01/05/20 14:30 COVID-19 (PETROS) Not Detected (Not Detect) 01/05/20 14:30 Slides for Path Review Cancelled 01/03/20 17:45 Impressions: Scrotum Ultrasound 01/03/20 17:14 IMPRESSION: Left epididymal cyst. The testes are normal. No acute inflammatory changes are seen. Abdomen/Pelvis CT 01/03/20 20:03 IMPRESSION: 1. Interval decrease in peripancreatic inflammatory stranding. 2. No pancreatic pseudocyst or necrosis. Plan Health Concerns: Risk to himself and others. Chronic pancreatitis. Plan of Treatment: Full IVC as recommended by psych. Transfer to appropriate treatment center. Continue with pancreatic supplementation. Seek treatment for chronic alcohol abuse. Goals: Appropriate pyshciatric attention and treatment. Cessation of alcohol abuse. Stroke Is this a Stroke Patient?: No Acute Heart Failure Is this a Heart Failure Patient?: No
--- NOTE | 2020-01-10 15:56 | PDOC CONSULTATION ---
Consultation-Blank Consultation: Behavioral Health Consult: Patient status FULL Involuntary Commitment after making suicidal statements with history of PTSD and alcohol use (he reported he has been weening off). Patient lacked emotional regulation and impulse control during initial assessment of suicidal ideation. Evaluation with patient and at bedside from [id number]. Patient reported "I feel like level, not going from one extreme to the other in 10 minutes, I feel clearer." He identified when at home the dogs are good for de escalation. He talked about how one goes between his legs and mentioned once they get the letter from the doctor the dogs will be trained as service dogs. Patient acknowledged he could start "counting colors again, said Dr. Oscar was a great therapist in the past," and said out loud/provided example how he counts colors. Patient stated he likes to draw and do tattoos, something he could get back into. noted music is a big thing for patient and he has various play lists on You [employer]ube to pull from. They were cautioned to be careful as music can also set the tone/mood. noted patient has a weight bench and patient added he'd like to use it and get a punching bag to put in the shed. Patient denied current suicidal and homicidal ideation. He has been denying both the last 3 days. Patient stated "the other day, my reaction, I knew it was not the right way, but it was like I saw red and nothing else." Patient reported having VA follow up in [place]: Omar at the [facility] for therapy, and A PCM and Psychiatrist at the [facility]. 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 also stated patient "sound great, his voice and tone, and his attitude is different in a positive way." Provided psychoeducation to patient and via using the phrase "practicing the pause" while also using hand gesture of "T" for timeout as a way for her to signal to him when she notices he needs to stop and think if he hasn't already. Patient was alert and oriented to self, person, place, time and situation. Mood was euthymic with congruent affect. He denied current suicidal and homicidal, and has been for the past 3 days. Patient did not appear to be responding to internal stimuli as evidenced by fair eye contact, answering questions appropriately when addressed, carrying on dialogue conversation and being engaged in evaluation and treatment plan/plan of care. Thought processes were linear and organized. Conversational speech was within normal limits for rate, tone and prosody. Intellectual abilities are estimated to be average. Insight, judgment and impulse control were fair as evidenced by being an active participant in the plan of care and brainstorming various ways to divert his mind/attention so that he can stop and think before acting/reacting. Clinical Presentation: Suicidal ideation Poor insight/judgment/impulse control as evidenced by reaction when told IVC (yelling, pulled out IV). History of PTSD and alcohol use with recent alcohol cut back Impression/Plan: Patient is cleared from acute psychiatric services. Recommendation to RESCIND Full Involuntary Commitment. Patient has denied suicidal and homicidal ideation the past 3 days. There is no observed psychosis. Patient's demeanor and behavior have improved from depressed with congruent affect and at times irritable with congruent affect to euthymic with congruent affect. He was able to provide specific ways he felt he improved (like he is level, not going from one extreme to the other in 10 minutes, felt clearer). He was an active participant in treatment planning/plan of care specifically related to ways he can divert his mind/attention (use counting colors again like he learned in a previous counseling relationship, music, drawing/tattoo, weigh lifting/punching bag, dogs, ) in order to try to have better control over and regulate his affect and emotions via stopping and thinking before acting/reacting. Provided another technique that could use that serves as both a verbal and visual cue (important with individuals with PTSD and when in heightened states) to patient to stop and think: to say "practice the pause" while giving hand gesture of "T" for time out. Patient stated he would call therapist Omar at the [facility] to get reconnected, as well as PCM and psychiatrist at the [facility]. 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 was present and involved in plan of care. Consulted with Dr. Kelly regarding the management and care of patient. Attending Hospitalist made aware of recommendations.
== END 2020-01-07 17:30 | disposition home or self-care (01) | DRG 439 ==
LOC: ER 16:03 → EH 23:25 → 4N 01-04 01:22
PROVIDERS: ADMIT Internal Medicine; ATTEND Hospitalist
DX: K85.20 Alcohol induced acute pancreatitis without necrosis or infection (principal); R45.851 Suicidal ideations; F32.9 Major depressive disorder, single episode, unspecified; F10.10 Alcohol abuse, uncomplicated; N50.812 Left testicular pain; N50.811 Right testicular pain; I10 Essential (primary) hypertension; F17.200 Nicotine dependence, unspecified, uncomplicated; E66.9 Obesity, unspecified; R45.850 Homicidal ideations; F90.9 Attention-deficit hyperactivity disorder, unspecified type; E87.6 Hypokalemia; E83.42 Hypomagnesemia; F31.9 Bipolar disorder, unspecified; F60.9 Personality disorder, unspecified; F43.10 Post-traumatic stress disorder, unspecified; K86.0 Alcohol-induced chronic pancreatitis; Z82.49 Family history of ischemic heart disease and other diseases of the circulatory system; Z83.3 Family history of diabetes mellitus; Z88.6 Allergy status to analgesic agent; Z91.040 Latex allergy status; Z91.09 Other allergy status, other than to drugs and biological substances; Z91.5 Personal history of self-harm; Z68.33 Body mass index [BMI] 33.0-33.9, adult; Z20.828 Contact with and (suspected) exposure to other viral communicable diseases
CPT/HCPCS: 36415; 74177; 76870; 80048; 80053; 80061; 80307; 81001; 83036; 83690; 83735; 84443; 85025; 85610; 87635; 93976; C9803; J0360; J1885; J2060; J2270; J2405; J3230; J3490; J7030; J7120; S0028; S0119